=== PATIENT | female | born 1955 | race American Indian/Alaskan Native ===

== ENCOUNTER 2017-09-27 13:03 | Inpatient (IN) | payer BC ==
[2017-09-27 13:07] VITALS: BMI 43.2
[2017-09-27] MEDS ORDERED: Aspirin 325 mg EC Tablets PO STA (13:33)
--- NOTE | 2017-09-27 13:40 | C.PDOC ---
History Of Present Illness 62 year old female, whose PMHx includes HTN and Morbid Obesity, presents to the ED for evaluation of left-sided chest tightness which has been intermittent for 1 week. Patient also complains of subjective shortness of breath. She was evaluated by her PMD and referred to the ED for further evaluation. She denies fever, chills and has no other complaints at this time. PMD: Dr. Serrano Time Seen by Provider: 09/27/17 13:12 Chief Complaint (Nursing): Chest Pain History Per: Patient History/Exam Limitations: no limitations Onset/Duration Of Symptoms: Intermittent Episodes (1 week) Current Symptoms Are (Timing): Still Present Quality: Tightness Additional History Per: Patient Past Medical History Reviewed: Historical Data, Nursing Documentation, Vital Signs Vital Signs: Last Vital Signs Temp 98.2 F 09/28/17 08:23 Pulse 60 09/28/17 08:23 Resp 20 09/28/17 08:23 BP 147/77 09/28/17 08:23 Pulse Ox 97 09/28/17 08:23 - Medical History PMH: HTN Surgical History: No Surg Hx Family History: States: Unknown Family Hx - Social History Hx Alcohol Use: No Hx Substance Use: No - Immunization History Hx Tetanus Toxoid Vaccination: No Hx Influenza Vaccination: No Hx Pneumococcal Vaccination: No Review Of Systems Constitutional: Negative for: Fever, Chills Cardiovascular: Positive for: Other (left-sided chest tightness ) Respiratory: Positive for: Shortness of Breath (subjective ) Physical Exam - Physical Exam Appears: Non-toxic, No Acute Distress, Other (morbidly obese ) Skin: Normal Color, Warm, Dry Head: Atraumatic, Normacephalic Eye(s): bilateral: Normal Inspection Oral Mucosa: Moist Neck: Supple Chest: Symmetrical, No Deformity, No Tenderness Cardiovascular: Rhythm Regular, No Murmur Respiratory: Normal Breath Sounds, No Rales, No Rhonchi, No Wheezing Extremity: Normal ROM, Capillary Refill (less than 2 seconds ) Neurological/Psych: Oriented x3, Normal Speech, Normal Cognition ED Course And Treatment - Laboratory Results Result Diagrams: 09/27/17 13:47 09/27/17 13:47 ECG: Interpreted By Me, Viewed By Me ECG Rhythm: Sinus Rhythm Interpretation Of ECG: Normal Sinus Rhythm at rate [address]/T wave changes. Rate From EC O2 Sat by Pulse Oximetry: 97 Medical Decision Making Medical Decision Making: Progress:cp ro acs Bloodwork, CXR, and EKG ordered and reviewed. Aspirin PO administered. dimer elevated ct shows no large pe, however limted study lovenox dosed. dr colon accepts will obatin v/q inpt. Disposition - Disposition Disposition: HOSPITALIZED Disposition Time: 17:33 Condition: STABLE - Clinical Impression Clinical Impression: Chest pain - Scribe Statement The provider has reviewed the documentation as recorded by the Scribe (Theresa Colon) Provider Attestation: All medical record entries made by the Scribe were at my direction and personally dictated by me. I have reviewed the chart and agree that the record accurately reflects my personal performance of the history, physical exam, medical decision making, and the department course for this patient. I have also personally directed, reviewed, and agree with the discharge instructions and disposition. Decision To Admit - Pt Status Changed To: Hospital Disposition Of: Inpatient - Admit Certification Admit to Inpatient:: After my assessment, the patient will require hospitalization for at least two midnights. This is because of the severity of symptoms shown, intensity of services needed, and/or the medical risk in this patient being treated as an outpatient. - InPatient: Physician Admission Certification: I certify that this patient requires 2 or more midnights of care for the following reason:: pt with cp. needs obs, and v/q - . Bed Request Type: Telemetry Admitting Physician: Soy Colon Patient Diagnosis: Chest pain
[2017-09-27 13:56] LABS: BASO # 0.1 K/uL (0.0-0.2); BASO % 0.9 % (0.0-2.0); EOS # 0.1 K/uL (0.0-0.7); EOS % 0.7 % (0.0-4.0); HEMOGLOBIN 13.6 g/dL (11.0-16.0); LYMPH # 3.4 K/uL (1.0-4.3); LYMPH % 36.9 % (20.0-40.0); MEAN CELL VOLUME 87.1 fL (81.0-99.0); MEAN CORPUSCULAR HEMOGLOBIN 28.9 pg (27.0-31.0); MEAN CORPUSCULAR HGB CONC 33.2 g/dL (33.0-37.0); MEAN PLATELET VOLUME 8.2 fL (7.2-11.7); MONO # 0.4 K/uL (0.0-0.8); MONO % 4.3 % (0.0-10.0); NEUT # 5.2 K/uL (1.8-7.0); NEUT % 57.2 % (50.0-75.0); RBC 4.72 Mil/uL (3.80-5.20); RED CELL DISTRIBUTION WIDTH 14.7 % (11.5-14.5); WHITE BLOOD COUNT 9.1 K/uL (4.8-10.8)
[2017-09-27 14:04] LABS: PROTHROMBIN TIME 11.5 SECONDS (9.7-12.2)
[2017-09-27] MEDS ORDERED: Aspirin 325 mg EC Tablets PO ONE (14:10)
[2017-09-27 14:16] LABS: ALBUMIN 4.3 g/dL (3.5-5.0); ALT/SGPT 38 U/L (9-52); AST/SGOT 29 U/L (14-36); BLOOD UREA NITROGEN 13 mg/dL (7-17); CALCIUM 9.4 mg/dl (8.6-10.4); GFR AFRICAN-AMERICAN > 60; GFR NON-AFRICAN AMERICAN > 60
[2017-09-27 14:32] LABS: B-TYPE NATRIURETIC PEPTIDE 78.2 pg/mL (0-900)
[2017-09-27] MEDS ORDERED: Iodixanol 320 MG/ML 100 ML BOTTLE IV ONE (15:21)
--- NOTE | 2017-09-27 15:48 | RAD ---
HISTORY: chest pain COMPARISON: None TECHNIQUE: Chest PA and lateral FINDINGS: LUNGS: No focal consolidation is seen. PLEURA: No pleural effusion is identified. CARDIOVASCULAR: Heart size is within normal limits. OSSEOUS STRUCTURES: Degenerative changes noted of the spine. VISUALIZED UPPER ABDOMEN: Unremarkable. OTHER FINDINGS: None. IMPRESSION: No acute cardiopulmonary process seen.
--- NOTE | 2017-09-27 16:39 | CT ---
PROCEDURE: CT Chest with contrast (Pulmonary Angiogram) HISTORY: sob elevated dimer COMPARISON: None available. TECHNIQUE: Axial computed tomography images were obtained of the chest in the pulmonary arterial phase of enhancement. Coronal and sagittal reformatted images were created and reviewed. Intravenous contrast dose: 100 mL Visipaque 320 Radiation dose: Total exam DLP = 575.79 mGy-cm. This CT exam was performed using one or more of the following dose reduction techniques: Automated exposure control, adjustment of the mA and/or kV according to patient size, and/or use of iterative reconstruction technique. FINDINGS: PULMONARY ARTERIES: Technically limited examination due to contrast timing and body habitus. Unable to evaluate segmental and subsegmental pulmonary artery branches. No large main or lobar pulmonary arterial filling defect appreciated. AORTA: No acute findings. No thoracic aortic aneurysm. LUNGS: Unremarkable. No nodule, mass or pulmonary consolidation. PLEURAL SPACES: Unremarkable. No effusion or pneuomothorax. HEART: Unremarkable. No cardiomegaly. No significant pericardial effusion. LYMPH NODES: No lymphadenopathy. BONES, CHEST WALL: Unremarkable. No fracture or destructive lesion OTHER FINDINGS: Unremarkable. IMPRESSION: Limited examination. No large main or lobar pulmonary arterial filling defect. Unable to evaluate segmental and subsegmental pulmonary artery branches due to technical limitation. No pulmonary infiltrate/ effusion. Otherwise unremarkable examination.
[2017-09-27] MEDS ORDERED: Enoxaparin 150 mg Syringe SC STA (16:42)
[2017-09-27] MEDS ORDERED: Enoxaparin 80 mg Syringe ONE (16:52)
[2017-09-27] MEDS ORDERED: Enoxaparin 40 mg Syringe ONE (16:53)
--- NOTE | 2017-09-27 20:03 | CP.PCM.PN ---
Subjective - Date & Time of Evaluation Date of Evaluation: 09/27/17 Objective - Vital Signs/Intake and Output Vital Signs (last 24 hours): Temp Pulse Resp BP Pulse Ox 98 F 70 16 141/73 97 09/27/17 13:08 09/27/17 17:18 09/27/17 17:18 09/27/17 17:18 09/27/17 17:34 - Medications Medications: Current Medications Hydrocodone Bitart/Acetaminophen (Vicodin 5 Mg-300 Mg) 1 tab PO Q6H PRN PRN Reason: Pain, moderate (4-7) Stop: 10/04/17 19:54 Amlodipine Besylate (Norvasc) 10 mg PO DAILY [facility] Aspirin (Aspirin Chewable) 81 mg PO DAILY [facility] Carvedilol (Coreg) 40 mg PO DAILY [facility] Enoxaparin Sodium (Lovenox) 40 mg SC DAILY [facility] Enoxaparin Sodium (Lovenox) 117 mg SC DAILY [facility] Gabapentin (Neurontin) 300 mg PO TID [facility] Pantoprazole Sodium (Protonix Inj) 40 mg IVP DAILY [facility] Rosuvastatin Calcium (Crestor) 5 mg PO HS [facility] Sitagliptin Phosphate (Januvia) 100 mg PO DAILY [facility] - Labs Labs: 09/27/17 13:47 09/27/17 13:47 PT 11.5 SECONDS (9.7-12.2) 09/27/17 13:47 INR 1.0 09/27/17 13:47 APTT 37 SECONDS (21-34) H 09/27/17 13:47
--- NOTE | 2017-09-27 20:09 | CP.PCM.HP ---
Past Patient History - Past Social History Smoking Status: Light Smoker < 10 Cigarettes Daily - CARDIAC Hx Hypertension: Yes - PSYCHIATRIC Hx Substance Use: No - SURGICAL HISTORY Hx Surgeries: Yes Hx Orthopedic Surgery: Yes (right knee) Meds Allergies/Adverse Reactions: Allergies Allergy/AdvReac Type Severity Reaction Status Date / Time No Known Allergies Allergy Verified 09/27/17 13:05 Results - Vital Signs Recent Vital Signs: Last Vital Signs Temp 98 F 09/27/17 13:08 Pulse 68 09/27/17 20:01 Resp 16 09/27/17 17:18 BP 141/73 09/27/17 17:18 Pulse Ox 97 09/27/17 17:34 - Labs Result Diagrams: 09/27/17 13:47 09/27/17 13:47 Labs: Laboratory Results - last 24 hr 09/27/17 09/27/17 09/27/17 13:47 13:47 13:47 WBC 9.1 RBC 4.72 Hgb 13.6 Hct 41.1 MCV 87.1 MCH 28.9 MCHC 33.2 RDW 14.7 H Plt Count 256 MPV 8.2 Neut % (Auto) 57.2 Lymph % (Auto) 36.9 Surry % (Auto) 4.3 Eos % (Auto) 0.7 Baso % (Auto) 0.9 Neut # (Auto) 5.2 Lymph # (Auto) 3.4 Surry # (Auto) 0.4 Eos # (Auto) 0.1 Baso # (Auto) 0.1 PT 11.5 INR 1.0 APTT 37 H D-Dimer, Quantitative Sodium 142 Potassium 4.0 Chloride 99 Carbon Dioxide 31 H Anion Gap 16 BUN 13 Creatinine 0.6 L Est GFR ( Amer) > 60 Est GFR (Non-Af Amer) > 60 Random Glucose 98 Calcium 9.4 Total Bilirubin 0.9 AST 29 ALT 38 Alkaline Phosphatase 77 Troponin I < 0.0120 NT-Pro-B Natriuret Pep 78.2 Total Protein 8.4 H Albumin 4.3 Globulin 4.1 H Albumin/Globulin Ratio 1.0 09/27/17 14:41 WBC RBC Hgb Hct MCV MCH MCHC RDW Plt Count MPV Neut % (Auto) Lymph % (Auto) Surry % (Auto) Eos % (Auto) Baso % (Auto) Neut # (Auto) Lymph # (Auto) Surry # (Auto) Eos # (Auto) Baso # (Auto) PT INR APTT D-Dimer, Quantitative 569 H Sodium Potassium Chloride Carbon Dioxide Anion Gap BUN Creatinine Est GFR ( Amer) Est GFR (Non-Af Amer) Random Glucose Calcium Total Bilirubin AST ALT Alkaline Phosphatase Troponin I NT-Pro-B Natriuret Pep Total Protein Albumin Globulin Albumin/Globulin Ratio Assessment & Plan - Assessment and Plan (Free Text) Plan: aspirin Crestor Lovenox ARTHUR 3 Cardiology consult
[2017-09-27] MEDS ORDERED: Pneumococcal 23-Valent Vaccine IM ONE (20:15)
[2017-09-27] MEDS: Hydrocodone/Acetaminophen 5 mg /300 mg Tab PO PRN (21:46)
[2017-09-28 01:39] LABS: CK-MB 0.37 ng/mL (0.0-3.38)
--- NOTE | 2017-09-28 09:34 | CP.PCM.PN ---
Subjective - Date & Time of Evaluation Date of Evaluation: 09/28/17 Time of Evaluation: 09:29 - Subjective Subjective: PGY-[address] Mendieta's service: Pt seen and examined at bedside. Nursing reports no acute events overnight. Patient c/o left sided chest "discomfort/tightness" intermittently for the past week with acute onset SOB starting two days ago. She saw her PMD Dr. Serrano who sent her to ED for evaluation. She states her chest discomfort feels "like a gas pain" but has been persistent. She denies radiation of chest to her back. She is found sitting comfortably at end of bed. She is speaking in full sentences and not using accessory muscles. She denies sick contacts, fever/ chills/headache/abd pain/ N/V. Objective - Vital Signs/Intake and Output Vital Signs (last 24 hours): Temp Pulse Resp BP Pulse Ox 98.2 F 60 20 147/77 97 09/28/17 08:23 09/28/17 08:23 09/28/17 08:23 09/28/17 08:23 09/28/17 08:23 - Medications Medications: Current Medications Hydrocodone Bitart/Acetaminophen (Vicodin 5 Mg-300 Mg) 1 tab PO Q6H PRN PRN Reason: Pain, moderate (4-7) Stop: 10/04/17 19:54 Last Admin: 09/27/17 21:46 Dose: 1 tab Amlodipine Besylate (Norvasc) 10 mg PO DAILY [facility] Aspirin (Aspirin Chewable) 81 mg PO DAILY [facility] Carvedilol (Coreg) 12.5 mg PO BID [facility] Enoxaparin Sodium (Lovenox) 117 mg SC Q12 [facility] Gabapentin (Neurontin) 300 mg PO TID [facility] Pantoprazole Sodium (Protonix Inj) 40 mg IVP DAILY [facility] Pneumococcal Polyvalent Vaccine (Pneumovax 23 Vaccine) 0.5 ml IM .ONCE ONE Stop: 09/28/17 21:01 Rosuvastatin Calcium (Crestor) 5 mg PO HS [facility] Last Admin: 09/27/17 21:36 Dose: 5 mg Sitagliptin Phosphate (Januvia) 100 mg PO DAILY [facility] - Labs Labs: 09/27/17 13:47 09/27/17 13:47 PT 11.5 SECONDS (9.7-12.2) 09/27/17 13:47 INR 1.0 09/27/17 13:47 APTT 37 SECONDS (21-34) H 09/27/17 13:47 - Constitutional Appears: Non-toxic, No Acute Distress, Other (Morbid obesity) - Head Exam Head Exam: ATRAUMATIC, NORMAL INSPECTION Additional comments: Speaking in full sentences No accessory muscle use - Eye Exam Eye Exam: EOMI, PERRL - ENT Exam ENT Exam: Mucous Membranes Moist - Neck Exam Additional comments: Due to habitus JVD cannot be accurately assessed - Respiratory Exam Respiratory Exam: Clear to Ausculation Bilateral, NORMAL BREATHING PATTERN. absent: Accessory Muscle Use, Rales, Rhonchi, Wheezes, Respiratory Distress - Cardiovascular Exam Cardiovascular Exam: REGULAR RHYTHM, +S1, +S2 - GI/Abdominal Exam GI & Abdominal Exam: Soft, Normal Bowel Sounds. absent: Tenderness - Back Exam Back Exam: absent: CVA tenderness (L), CVA tenderness (R) - Neurological Exam Neurological Exam: Alert, Awake, Oriented x3 - Psychiatric Exam Psychiatric exam: Normal Affect, Normal Mood - Skin Skin Exam: Normal Color, Warm Assessment and Plan - Assessment and Plan (Free Text) Plan: Chest pain R/o ACS Admit to tele Patient with multiple RFs for CAD: HTN, DM, HLD, Obesity ARTHUR panel negative x 2 BNP: 78.2 EKG (09/27/17): NSR, 64 bpm; No S1Q3T3; No ST/T wave changes CXR (09/27/17): NAD MANUEL score 2pts (positive criteria: ASA use in past week, 3+ RFs for CAD) - 8% mortality risk w/in 14 days Elevated d-dimer 569 (see plan below) Dr. Dumont, Occupancy Specialist, help appreciated - f/u reccs ASA 81mg PO daily - ASA 325mg PO given in ED once Coreg 12.5 mg PO BID Crestor 5mg PO HS Lovenox 117 mg SC Q12H f/u TSH, Free T4, Lipid panel, A1C Elevated D-dimer D-dimer 569 Venous dopplers Us BLE (09/28/17): negative for DVT CT Chest (09/27/17): Limited examination. No large main/lobar pulm arterial filling defects. Unable to evaluate segmental/subsegmental pulm artery branches due to limitation. No infiltrates/effusions. f/u Vq Scan HTN Above goal at admission; will monitor Norvasc 10mg PO Daily Diabetes Mellitus f/u A1C Not on DALE/ARB - will ask pt if intolerant, o/w will start Januvia 100mg PO Daily Crestor 5mg PO HS DM neuropathy Gabapentin 300mg PO Daily Prophylaxis Lovenox 171 mg SC Q12H Protonix 40mg IV SCD C/I Disposition: VQ scan per Dr. Mendieta. Will continue with therapeutic Lovenox until VQ negative per attending instructions. Will await Dr. Dumont's workup. All medical management per Dr. Mendieta
[2017-09-28] MEDS: Enoxaparin 120 mg Syringe SC SCH ×2 (09:50→21:38)
[2017-09-28] MEDS ORDERED: Enoxaparin 120 mg Syringe SC SCH (10:00)
[2017-09-28] MEDS ORDERED: Enoxaparin 40 mg Syringe SC SCH (10:00)
--- NOTE | 2017-09-28 10:22 | CARD ---
APPROVED REPORT EKG Measurement Heart [id number] <Conclusion> Normal sinus rhythm Normal ECG
[2017-09-28] MEDS ORDERED: Glucagon Recombinant 1 mg Inj IM PRN (12:05)
[2017-09-28] MEDS ORDERED: Dextrose 50% SYRINGE Inj (50 ml) IV PRN (12:05)
--- NOTE | 2017-09-28 15:28 | VASCLAB ---
PROCEDURE: Lower Extremity Venous Duplex Exam. HISTORY: DVT PRIORS: None. TECHNIQUE: Bilateral common femoral, femoral, popliteal and posterior tibial, peroneal and great saphenous veins were evaluated. Flow was assessed with color Doppler, compressibility, assessment of phasic flow and augmentation response. Report prepared by CORRY Urena, RVT FINDINGS: RIGHT: 1. Common Femoral Vein: 1.1. Compressibility - Fully compressible: Thrombus - None : Flow - Phasic: Augmentation -Normal: Reflux - None. 2. Femoral Vein: 2.1. Compressibility - Fully compressible: Thrombus - None : Flow - Phasic: Augmentation -Normal: Reflux - None. 3. Popliteal Vein: 3.1. Compressibility - Fully compressible: Thrombus - None : Flow - Phasic: Augmentation -Normal: Reflux - Severe. 4. Posterior Tibial Vein: 4.1. Compressibility - Fully compressible: Thrombus - None: Flow - Phasic: Augmentation -Normal: Reflux - None. 5. Peroneal Vein: 5.1. Compressibility - Fully compressible: Thrombus - None: Flow - Phasic: Augmentation -Normal: Reflux - None. 6. Great Saphenous Vein: 6.1. Compressibility - Fully compressible: Thrombus - None: Flow - Phasic: Augmentation - Normal: Reflux - None. LEFT: 1. Common Femoral Vein: 1.1. Compressibility - Fully compressible: Thrombus - None: Flow - Phasic: Augmentation -Normal: Reflux - None. 2. Femoral Vein: 2.1. Compressibility - Fully compressible: Thrombus - None: Flow - Phasic: Augmentation -Normal: Reflux - None. 3. Popliteal Vein: 3.1. Compressibility - Fully compressible: Thrombus - None : Flow - Phasic: Augmentation -Normal: Reflux - None. 4. Posterior Tibial Vein: 4.1. Compressibility - Fully compressible: Thrombus - None: Flow - Phasic: Augmentation -Normal: Reflux - None. 5. Peroneal Vein: 5.1. Compressibility - Fully compressible: Thrombus - None: Flow - Phasic: Augmentation -Normal: Reflux - None. 6. Great Saphenous Vein: 6.1. Compressibility - Fully compressible: Thrombus - None: Flow - Phasic: Augmentation - Normal: Reflux - None. OTHER FINDINGS: Right: None significant. Left: None significant. IMPRESSION: Right: No evidence of deep or superficial vein thrombosis of the right lower extremity. Valvular incompetence of the right popliteal vein. Left: No evidence of deep or superficial vein thrombosis of the left lower extremity. Normal valve function noted of the left side.
--- NOTE | 2017-09-28 16:03 | NM ---
COMPARISON: 09/27/2017 CT angiogram for pulmonary embolism September 27, 2017. Single-view chest. September 28, 2017. Lower extremity duplex venous sonography TECHNIQUE: 11.3 mCi technetium 99-m Xe-133 Gas. 3.4 mCI technetium 99-m MAA administered intravenously. FINDINGS: VENTILATION COMPONENT: Normal. PERFUSION COMPONENT: Heterogeneous distribution of radionuclide. No geographic, segmental, lobar abnormalities apparent on the present examination. IMPRESSION: Low probability ventilation perfusion scan for pulmonary embolism.
--- NOTE | 2017-09-28 18:19 | CP.PCM.PN ---
Subjective - Date & Time of Evaluation Date of Evaluation: 09/28/17 Time of Evaluation: 10:00 - Subjective Subjective: clinically same Objective - Vital Signs/Intake and Output Vital Signs (last 24 hours): Temp Pulse Resp BP Pulse Ox 98.4 F 61 20 138/75 97 09/28/17 15:10 09/28/17 16:00 09/28/17 15:10 09/28/17 15:10 09/28/17 16:00 - Medications Medications: Current Medications Hydrocodone Bitart/Acetaminophen (Vicodin 5 Mg-300 Mg) 1 tab PO Q6H PRN PRN Reason: Pain, moderate (4-7) Stop: 10/04/17 19:54 Last Admin: 09/27/17 21:46 Dose: 1 tab Amlodipine Besylate (Norvasc) 10 mg PO DAILY [facility] Aspirin (Aspirin Chewable) 81 mg PO DAILY [facility] Carvedilol (Coreg) 12.5 mg PO BID [facility] Dextrose (Dextrose 50% Inj) 0 ml IV STAT PRN; Protocol PRN Reason: Hypoglycemia Protocol Dextrose (Glutose 15) 0 gm PO ONCE PRN; Protocol PRN Reason: Hypoglycemia Protocol Enoxaparin Sodium (Lovenox) 117 mg SC Q12 [facility] Gabapentin (Neurontin) 300 mg PO TID [facility] Glucagon (Glucagen Diagnostic Kit) 0 mg IM STAT PRN; Protocol PRN Reason: Hypoglycemia Protocol Dextrose (Dextrose 5% In Water 1000 Ml) 1,000 mls @ 0 mls/hr IV .Q0M PRN; Protocol; Per Protocol PRN Reason: Hypoglycemia Protocol Pantoprazole Sodium (Protonix Inj) 40 mg IVP DAILY [facility] Pneumococcal Polyvalent Vaccine (Pneumovax 23 Vaccine) 0.5 ml IM .ONCE ONE Stop: 09/28/17 21:01 Rosuvastatin Calcium (Crestor) 5 mg PO HS [facility] Last Admin: 09/27/17 21:36 Dose: 5 mg Sitagliptin Phosphate (Januvia) 100 mg PO DAILY [facility] - Labs Labs: 09/27/17 13:47 09/27/17 13:47 PT 11.5 SECONDS (9.7-12.2) 09/27/17 13:47 INR 1.0 09/27/17 13:47 APTT 37 SECONDS (21-34) H 09/27/17 13:47 - Constitutional Appears: Well - Head Exam Head Exam: ATRAUMATIC, NORMAL INSPECTION, NORMOCEPHALIC - Eye Exam Eye Exam: EOMI, Normal appearance, PERRL Pupil Exam: NORMAL ACCOMODATION, PERRL - ENT Exam ENT Exam: Mucous Membranes Moist, Normal Exam - Neck Exam Neck Exam: Full ROM, Normal Inspection. absent: Lymphadenopathy - Respiratory Exam Respiratory Exam: Decreased Breath Sounds - Cardiovascular Exam Cardiovascular Exam: REGULAR RHYTHM, +S1, +S2 - GI/Abdominal Exam GI & Abdominal Exam: Soft, Diminished Bowel Sounds - Rectal Exam Rectal Exam: Deferred
[2017-09-28 18:53] LABS: BASO # 0.1 K/uL (0.0-0.2); BASO % 0.6 % (0.0-2.0); EOS # 0.1 K/uL (0.0-0.7); HEMOGLOBIN 13.2 g/dL (11.0-16.0); LYMPH # 3.5 K/uL (1.0-4.3); LYMPH % 35.3 % (20.0-40.0); MEAN CELL VOLUME 86.3 fL (81.0-99.0); MEAN CORPUSCULAR HEMOGLOBIN 29.3 pg (27.0-31.0); MEAN PLATELET VOLUME 8.1 fL (7.2-11.7); MONO # 0.4 K/uL (0.0-0.8); MONO % 4.1 % (0.0-10.0); NEUT # 5.8 K/uL (1.8-7.0); NRBC % 0.1 % (0.0-2.0); RBC 4.49 Mil/uL (3.80-5.20); RED CELL DISTRIBUTION WIDTH 14.5 % (11.5-14.5); WHITE BLOOD COUNT 9.8 K/uL (4.8-10.8)
[2017-09-28 19:12] LABS: ALB/GLOB RATIO 1.1 (1.0-2.1); ALBUMIN 4.2 g/dL (3.5-5.0); ALT/SGPT 36 U/L (9-52); AST/SGOT 28 U/L (14-36); BLOOD UREA NITROGEN 12 mg/dL (7-17); CALCIUM 9.2 mg/dl (8.6-10.4); GFR AFRICAN-AMERICAN > 60; GFR NON-AFRICAN AMERICAN > 60
[2017-09-28] MEDS ORDERED: Potassium Chloride 10 mEq ER Tab PO STA (19:28)
[2017-09-28] MEDS ORDERED: Pneumococcal 23-Valent Vaccine IM ONE (21:00)
--- NOTE | 2017-09-29 01:22 | CON ---
DATE: CARDIOLOGY CONSULTATION REASON FOR CONSULTATION: Chest pain. HISTORY OF PRESENT ILLNESS: The patient is 62 years old, morbidly obese, -[place] female, who has a history of hypertension and is a smoker, presenting because of left-sided chest tightness, radiating to the left shoulder. The patient was seen by her primary physician, Dr. Serrano, and was advised to go to the emergency room. The patient denies any prior cardiac history. The patient denies any associated deficits or chest discomfort. The patient is unaware of any stress testing or cardiac catheterization done to her in the past. The patient has a history of total right knee replacement many years ago, and she uses walking cane in the street. SOCIAL HISTORY: The patient is a smoker. She works as a teacher in [employer]. REVIEW OF SYSTEMS: No fever or chills. No vomiting or diarrhea. No dizziness or syncope. MEDICATIONS: Aspirin 81 mg once a day, Coreg 12.5 mg twice a day, Crestor 5 mg once a day, Januvia 100 mg daily, Lovenox mg subcutaneous twice a day, Neurontin 300 mg t.i.d., Norvasc 10 mg once a day, Protonix 40 mg intravenously once a day. PHYSICAL EXAMINATION: GENERAL: The patient is a middle-aged female who is above 260 pounds. VITAL SIGNS: Blood pressure 147/77, heart rate 60, temperature 98.2, respirations 20. HEENT: Normocephalic. NECK: No JVD. LUNGS: Clear. HEART: S1 and S2 regular. Grade 3/6 systolic ejection murmur over left sternal border. ABDOMEN: Soft. EXTREMITIES: 2+ pitting edema. No calf tenderness. LABORATORIES: CBC, WBC 9.1, hemoglobin 15.6, hematocrit 41.4, platelet count 156,000. SMA-7: Sodium 142, potassium 4.0, chloride 99, CO2 of 81, glucose 98, BUN 15, creatinine 0.8. Two sets of troponins are negative. PT 11.5, PTT 37. D-dimer is 569. Chest CT angio, limited examination, no large main or lobar pulmonary arterial filling defect, unable to evaluate segmental and subsegmental pulmonary arteries, pulmonary artery branches due to technical limitation. EKG revealed normal sinus rhythm. Venous Doppler of lower extremity as well as ventilation/perfusion scan were performed but the reports are still pending. ASSESSMENT: 1. Chest pain, myocardial infarction is ruled out. 2. Morbid obesity. 3. Hypertension. 4. Rule out pulmonary embolism. RECOMMENDATIONS: Continue aspirin 81 mg once a day, Coreg 12.5 mg twice a day, Crestor 5 mg once a day. Continue subcutaneous Lovenox at mg twice a day, Norvasc 10 mg twice a day, Protonix 40 mg intravenously once a day. I would follow ventilation/perfusion scan as well as venous Doppler lower extremity reports. I did request an echocardiogram. Further cardiac workup was about to be recommended to the patient, however, the patient stated that she has to go home today, no matter what, and the case was further to be discussed with the primary physician. It is not clear if the patient will wait for her echo to be performed which was already ordered. David Bangura MD
[2017-09-29] MEDS: Enoxaparin 120 mg Syringe SC SCH (09:59)
[2017-09-29] MEDS: Hydrocodone/Acetaminophen 5 mg /300 mg Tab PO PRN (12:27)
--- NOTE | 2017-09-29 13:36 | CP.PCM.PN ---
Subjective - Date & Time of Evaluation Date of Evaluation: 09/29/17 Time of Evaluation: 08:10 - Subjective Subjective: clinically same Objective - Vital Signs/Intake and Output Vital Signs (last 24 hours): Temp Pulse Resp BP Pulse Ox 97.2 F L 65 20 125/71 95 09/29/17 07:00 09/29/17 07:30 09/29/17 07:00 09/29/17 09:58 09/29/17 07:00 - Medications Medications: Current Medications Hydrocodone Bitart/Acetaminophen (Vicodin 5 Mg-300 Mg) 1 tab PO Q6H PRN PRN Reason: Pain, moderate (4-7) Stop: 10/04/17 19:54 Last Admin: 09/29/17 12:27 Dose: 1 tab Amlodipine Besylate (Norvasc) 10 mg PO DAILY [facility] Last Admin: 09/29/17 09:58 Dose: 10 mg Aspirin (Aspirin Chewable) 81 mg PO DAILY [facility] Last Admin: 09/29/17 09:58 Dose: 81 mg Carvedilol (Coreg) 12.5 mg PO BID [facility] Last Admin: 09/29/17 09:58 Dose: 12.5 mg Dextrose (Dextrose 50% Inj) 0 ml IV STAT PRN; Protocol PRN Reason: Hypoglycemia Protocol Dextrose (Glutose 15) 0 gm PO ONCE PRN; Protocol PRN Reason: Hypoglycemia Protocol Enoxaparin Sodium (Lovenox) 40 mg SC DAILY [facility] Gabapentin (Neurontin) 300 mg PO TID [facility] Last Admin: 09/29/17 09:59 Dose: 300 mg Glucagon (Glucagen Diagnostic Kit) 0 mg IM STAT PRN; Protocol PRN Reason: Hypoglycemia Protocol Dextrose (Dextrose 5% In Water 1000 Ml) 1,000 mls @ 0 mls/hr IV .Q0M PRN; Protocol; Per Protocol PRN Reason: Hypoglycemia Protocol Pantoprazole Sodium (Protonix Inj) 40 mg IVP DAILY [facility] Last Admin: 09/29/17 09:59 Dose: 40 mg Rosuvastatin Calcium (Crestor) 5 mg PO HS [facility] Last Admin: 09/28/17 21:38 Dose: 5 mg Sitagliptin Phosphate (Januvia) 100 mg PO DAILY [facility] Last Admin: 09/29/17 09:58 Dose: 100 mg - Labs Labs: 09/28/17 18:45 09/28/17 18:45 PT 11.5 SECONDS (9.7-12.2) 09/27/17 13:47 INR 1.0 09/27/17 13:47 APTT 37 SECONDS (21-34) H 09/27/17 13:47 - Constitutional Appears: Well - Head Exam Head Exam: ATRAUMATIC, NORMAL INSPECTION, NORMOCEPHALIC - Eye Exam Eye Exam: EOMI, Normal appearance, PERRL Pupil Exam: NORMAL ACCOMODATION, PERRL - ENT Exam ENT Exam: Mucous Membranes Moist, Normal Exam - Neck Exam Neck Exam: Full ROM, Normal Inspection. absent: Lymphadenopathy - Respiratory Exam Respiratory Exam: Decreased Breath Sounds - Cardiovascular Exam Cardiovascular Exam: REGULAR RHYTHM, +S1, +S2 - GI/Abdominal Exam GI & Abdominal Exam: Soft, Diminished Bowel Sounds - Rectal Exam Rectal Exam: Deferred
--- NOTE | 2017-09-29 16:20 | CARD ---
APPROVED REPORT EXAM: Two-dimensional and M-mode echocardiogram with Doppler and color Doppler. Other Information Quality : Technically LimitedRhythm : NSR INDICATION Chest Pain 2D DIMENSIONS IVSd1.7 (0.7-1.1cm)LVDd3.0 (3.9-5.9cm) LVOT Diameter1.6 (1.8-2.4cm)PWd1.7 (0.7-1.1cm) M-Mode DIMENSIONS RVDd2.06 (2.1-3.2cm)Left Atrium (MM)3.67 (2.5-4.0cm) IVSd1.48 (0.7-1.1cm)Aortic Root3.01 (2.2-3.7cm) LVDd5.11 (4.0-5.6cm)Aortic Cusp Exc.1.20 (1.5-2.0cm) PWd1.24 (0.7-1.1cm)FS (%) 45 % LVDs2.80 (2.0-3.8cm)LVEF (%)76 (>50%) Aortic Valve AoV Peak Lunahwyo274.1cm/sAoV VTI62.0cmAO Peak GR.32mmHg LVOT Peak Qfenvkvi104.7cm/sLVOT VTI30.10cmAO Mean GR.17mmHg ISAK (VMAX)0.62wm2NYX (VTI)1.03cm2 Mitral Valve MV E Ssqkkoro472.9cm/sMV A Dhjrykfz897.9cm/sE/A ratio1.0 TDI E/Lateral E'0.0E/Medial E'0.0 Tricuspid Valve TR Peak Kqnfexgq078pv/sTR Peak Gr.39ncSeJICN56mfUr <Conclusion> tds. poor window. normal size la,lv & ra rv. normal lv wall motion,systolic & diastolic function with lvef of 60-65%. moderate degree of lvh. aortic valve is probably trileaflet & calcified. mitral appears normal. tv & pv not well seen. peak/mean av gradient of 37/17 mm of hg & calculated isak of 1.0 cmsq. no ai seen. mild tr with calculated pulmonary systolic pressures of 43 mm of hg, mild pulmonary htn. no pericardial effusion. normal size aortic root.
--- NOTE | 2017-09-29 18:09 | PN ---
DATE: SUBJECTIVE: The patient is comfortable. Chest pain free this morning. No reported ventricular arrhythmia. PHYSICAL EXAMINATION VITAL SIGNS: Blood pressure 125/71, heart rate 61, temperature 97.2, respirations 20. HEENT: Normocephalic. CHEST: Clear. HEART: S1 and S2 regular. ABDOMEN: Soft. EXTREMITIES: 1+ pitting edema. LABORATORY DATA: Two sets of troponins are negative. Today's blood sugar is 115. Official report of Ventilation/perfusion scan has low probability for pulmonary embolus. Venous Doppler of lower extremity, no evidence of deep or superficial deep venous thrombosis. I did review the echocardiographic study, which revealed concentric left ventricular hypertrophy with normal ejection fraction. Right ventricle is slightly dilated with slightly reduced systolic function. ASSESSMENT: 1. Chest pain, myocardial infarction was ruled out. 2. Morbid obesity. 3. Hypertension and diabetes mellitus. 4. Hyperlipidemia. RECOMMENDATIONS: Continue Coreg 12.5 mg once a day, Crestor 5 mg once a day, change Lovenox to 40 mg subcutaneous daily, continue Norvasc 10 mg once a day. The patient agrees for cardiac catheterization, which is scheduled for Sunday around 11 a.m. The patient will be kept NPO after midnight tomorrow. David Bangura MD
[2017-09-30] MEDS ORDERED: DiphenhydrAMINE 50 mg/ml Inj IVP STA (00:09)
[2017-09-30] MEDS ORDERED: Enoxaparin 40 mg Syringe SC SCH (10:00)
[2017-09-30] MEDS: Hydrocodone/Acetaminophen 5 mg /300 mg Tab PO PRN (12:52)
[2017-09-30 12:59] LABS: BARBITURATES, UR NEGATIVE (NEGATIVE); PHENCYCLIDINE, UR NEGATIVE (NEGATIVE)
[2017-09-30 13:59] LABS: BENZODIAZEPINES, UR POSITIVE (NEGATIVE); OPIATES, UR POSITIVE (NEGATIVE)
--- NOTE | 2017-09-30 18:32 | CP.PCM.PN ---
Subjective - Date & Time of Evaluation Date of Evaluation: 09/30/17 Time of Evaluation: 10:20 - Subjective Subjective: clinically same Objective - Vital Signs/Intake and Output Vital Signs (last 24 hours): Temp Pulse Resp BP Pulse Ox 98.1 F 78 21 134/78 95 09/30/17 15:00 09/30/17 15:30 09/30/17 15:00 09/30/17 17:24 09/30/17 15:00 - Medications Medications: Current Medications Hydrocodone Bitart/Acetaminophen (Vicodin 5 Mg-300 Mg) 1 tab PO Q6H PRN PRN Reason: Pain, moderate (4-7) Stop: 10/04/17 19:54 Last Admin: 09/30/17 12:52 Dose: 1 tab Amlodipine Besylate (Norvasc) 10 mg PO DAILY [facility] Last Admin: 09/30/17 09:04 Dose: 10 mg Aspirin (Aspirin Chewable) 81 mg PO DAILY [facility] Last Admin: 09/30/17 09:01 Dose: 81 mg Carvedilol (Coreg) 12.5 mg PO BID [facility] Last Admin: 09/30/17 17:24 Dose: 12.5 mg Dextrose (Dextrose 50% Inj) 0 ml IV STAT PRN; Protocol PRN Reason: Hypoglycemia Protocol Dextrose (Glutose 15) 0 gm PO ONCE PRN; Protocol PRN Reason: Hypoglycemia Protocol Gabapentin (Neurontin) 300 mg PO TID [facility] Last Admin: 09/30/17 17:24 Dose: 300 mg Glucagon (Glucagen Diagnostic Kit) 0 mg IM STAT PRN; Protocol PRN Reason: Hypoglycemia Protocol Dextrose (Dextrose 5% In Water 1000 Ml) 1,000 mls @ 0 mls/hr IV .Q0M PRN; Protocol; Per Protocol PRN Reason: Hypoglycemia Protocol Pantoprazole Sodium (Protonix Inj) 40 mg IVP DAILY [facility] Last Admin: 09/30/17 09:04 Dose: 40 mg Pneumococcal Polyvalent Vaccine (Pneumovax 23 Vaccine) 0.5 ml IM .ONCE ONE Stop: 10/01/17 14:01 Rosuvastatin Calcium (Crestor) 5 mg PO HS [facility] Last Admin: 09/29/17 21:30 Dose: 5 mg Sitagliptin Phosphate (Januvia) 100 mg PO DAILY [facility] Last Admin: 09/30/17 09:04 Dose: 100 mg - Labs Labs: 09/28/17 18:45 03/23/18 18:45 PT 11.5 SECONDS (9.7-12.2) 09/27/17 13:47 INR 1.0 09/27/17 13:47 APTT 37 SECONDS (21-34) H 09/27/17 13:47 - Constitutional Appears: Well - Head Exam Head Exam: ATRAUMATIC, NORMAL INSPECTION, NORMOCEPHALIC - Eye Exam Eye Exam: EOMI, Normal appearance, PERRL Pupil Exam: NORMAL ACCOMODATION, PERRL - ENT Exam ENT Exam: Mucous Membranes Moist, Normal Exam - Neck Exam Neck Exam: Full ROM, Normal Inspection. absent: Lymphadenopathy - Respiratory Exam Respiratory Exam: Decreased Breath Sounds - Cardiovascular Exam Cardiovascular Exam: REGULAR RHYTHM, +S1, +S2 - GI/Abdominal Exam GI & Abdominal Exam: Soft, Diminished Bowel Sounds - Rectal Exam Rectal Exam: Deferred
--- NOTE | 2017-09-30 20:32 | PN ---
DATE: 09/30/2017 SUBJECTIVE: The patient is still experiencing right leg pain. She denies any chest pain. PHYSICAL EXAMINATION: VITAL SIGNS: Blood pressure 156/69, heart rate 68, temperature 98.1, and respirations 21. HEENT: Normocephalic. CHEST: Clear. HEART: S1 and S2, regular. EXTREMITIES: 1+ pitting edema. LABORATORY DATA: Today's blood sugar is 103 and 130 respectively. Official echocardiographic study report is poor echo window, normal LV size, and normal right atrial and right ventricular size. Normal left ventricular wall motion, systolic and diastolic function. Ejection fraction of 60% to 65%. Moderate LVH. Calculated pulmonary systolic pressure, 43 mmHg. ASSESSMENT: 1. Chest pain, myocardial infarction is ruled out. 2. Mild pulmonary hypertension. 3. Status post total left knee replacement. 4. Hypertension and diabetes mellitus. RECOMMENDATIONS: Continue aspirin 81 mg once a day, Coreg at 12.5 mg once a day, Crestor at 5 mg once a day, Lovenox at 40 mg subcutaneously once a day, Norvasc 10 mg once a day. The patient will be kept n.p.o. after midnight. Cardiac catheterization at 11 a.m. Procedure and its risks were explained to the patient, who understood and agreed for the procedure. David Bangura MD
[2017-10-01] MEDS ORDERED: DiphenhydrAMINE 50 mg/ml Inj IVP STA (00:23)
[2017-10-01 08:22] VITALS: RESP 20
--- NOTE | 2017-10-01 09:11 | CP.PCM.PN ---
Subjective - Date & Time of Evaluation Date of Evaluation: 10/01/17 Time of Evaluation: 09:11 - Subjective Subjective: PGY-[address] Mendieta's service: Pt seen and examined at bedside. Nursing reports no acute events overnight. Objective - Vital Signs/Intake and Output Vital Signs (last 24 hours): Temp Pulse Resp BP Pulse Ox 98.2 F 68 20 119/76 97 10/01/17 08:05 10/01/17 08:05 10/01/17 08:05 10/01/17 08:05 10/01/17 08:05 Intake and Output: 10/01/17 10/01/17 06:59 18:59 Intake Total 450 Balance 450 - Medications Medications: Current Medications Hydrocodone Bitart/Acetaminophen (Vicodin 5 Mg-300 Mg) 1 tab PO Q6H PRN PRN Reason: Pain, moderate (4-7) Stop: 10/04/17 19:54 Last Admin: 09/30/17 12:52 Dose: 1 tab Amlodipine Besylate (Norvasc) 10 mg PO DAILY [facility] Last Admin: 09/30/17 09:04 Dose: 10 mg Aspirin (Aspirin Chewable) 81 mg PO DAILY [facility] Last Admin: 09/30/17 09:01 Dose: 81 mg Carvedilol (Coreg) 12.5 mg PO BID [facility] Last Admin: 09/30/17 17:24 Dose: 12.5 mg Dextrose (Dextrose 50% Inj) 0 ml IV STAT PRN; Protocol PRN Reason: Hypoglycemia Protocol Dextrose (Glutose 15) 0 gm PO ONCE PRN; Protocol PRN Reason: Hypoglycemia Protocol Gabapentin (Neurontin) 300 mg PO TID [facility] Last Admin: 09/30/17 17:24 Dose: 300 mg Glucagon (Glucagen Diagnostic Kit) 0 mg IM STAT PRN; Protocol PRN Reason: Hypoglycemia Protocol Dextrose (Dextrose 5% In Water 1000 Ml) 1,000 mls @ 0 mls/hr IV .Q0M PRN; Protocol; Per Protocol PRN Reason: Hypoglycemia Protocol Pantoprazole Sodium (Protonix Inj) 40 mg IVP DAILY [facility] Last Admin: 09/30/17 09:04 Dose: 40 mg Pneumococcal Polyvalent Vaccine (Pneumovax 23 Vaccine) 0.5 ml IM .ONCE ONE Stop: 10/01/17 14:01 Rosuvastatin Calcium (Crestor) 5 mg PO HS [facility] Last Admin: 09/30/17 21:27 Dose: 5 mg Sitagliptin Phosphate (Januvia) 100 mg PO DAILY [facility] Last Admin: 09/30/17 09:04 Dose: 100 mg - Labs Labs: 09/28/17 18:45 09/28/17 18:45 PT 11.5 SECONDS (9.7-12.2) 09/27/17 13:47 INR 1.0 09/27/17 13:47 APTT 37 SECONDS (21-34) H 09/27/17 13:47 - Additional Findings Additional findings: - Constitutional Appears: Non-toxic, No Acute Distress, Other (Morbid obesity) - Head Exam Head Exam: ATRAUMATIC, NORMAL INSPECTION Additional comments: - Eye Exam Eye Exam: EOMI, PERRL - ENT Exam ENT Exam: Mucous Membranes Moist - Neck Exam Additional comments: - Respiratory Exam Respiratory Exam: Clear to Ausculation Bilateral, NORMAL BREATHING PATTERN. absent: Accessory Muscle Use, Rales, Rhonchi, Wheezes, Respiratory Distress - Cardiovascular Exam Cardiovascular Exam: REGULAR RHYTHM, +S1, +S2 - GI/Abdominal Exam GI & Abdominal Exam: Soft, Normal Bowel Sounds. absent: Tenderness - Back Exam Back Exam: absent: CVA tenderness (L), CVA tenderness (R) - Neurological Exam Neurological Exam: Alert, Awake, Oriented x3 - Psychiatric Exam Psychiatric exam: Normal Affect, Normal Mood - Skin Skin Exam: Normal Color, Warm Assessment and Plan - Assessment and Plan (Free Text) Plan: Chest pain R/o ACS Admit to tele Patient with multiple RFs for CAD: HTN, DM, HLD, Obesity ARTHUR panel negative x 2 BNP: 78.2 EKG (09/27/17): NSR, 64 bpm; No S1Q3T3; No ST/T wave changes CXR (09/27/17): NAD ECHO (): MANUEL score 2pts (positive criteria: ASA use in past week, 3+ RFs for CAD) - 8% mortality risk w/in 14 days Elevated d-dimer 569 (see plan below) Dr. Dumont, Information Technology Account Manager, help appreciated - Cardiac Cath for 11AM today ASA 81mg PO daily - ASA 325mg PO given in ED once Coreg 12.5 mg PO BID Start Lisinopril 2.5mg PO Daily Crestor 5mg PO HS Lovenox 117 mg SC Q12H TSH, Free T4: WNL Lipid panel TG 260, Chol 194, LDL 117, HDL 35 A1C: 6.6 Elevated D-dimer D-dimer 569 Venous dopplers Us BLE (09/28/17): negative for DVT CT Chest (09/27/17): Limited examination. No large main/lobar pulm arterial filling defects. Unable to evaluate segmental/subsegmental pulm artery branches due to limitation. No infiltrates/effusions. Vq Scan (09/28/17): Low probability for PE HTN Now well-controlled Norvasc 10mg PO Daily Coreg 12.5 mg PO BID Start Lisinopril 2.5mg PO Daily Diabetes Mellitus A1C: 6.6, well-controlled Start Lisinopril 2.5mg PO Daily Januvia 100mg PO Daily Crestor 5mg PO HS f/u UA, microalbumin Low HDL/Hypertriglyceridemia Diet and exercise counseling given HDL 35, TG 260 Start omega-3 capsules BID DM neuropathy Gabapentin 300mg PO Daily Chronic Knee pain Vicodin/Acetaminophen 5/300mg 1 tab PO Q6H PRN Prophylaxis Lovenox held for cardiac cath this AM, will resume tonight if pt stay in hospital Protonix 40mg PO SCDs Disposition: Pt for cardiac cath today. Await results of cath, Dr. Dumont's recommendations. All medical management per Dr. Mendieta
[2017-10-01 09:36] LABS: BASO % 0.6 % (0.0-2.0); EOS # 0.1 K/uL (0.0-0.7); EOS % 1.4 % (0.0-4.0); HEMOGLOBIN 13.4 g/dL (11.0-16.0); LYMPH # 2.4 K/uL (1.0-4.3); LYMPH % 30.4 % (20.0-40.0); MEAN CELL VOLUME 86.9 fL (81.0-99.0); MEAN CORPUSCULAR HGB CONC 33.4 g/dL (33.0-37.0); MEAN PLATELET VOLUME 8.2 fL (7.2-11.7); MONO # 0.3 K/uL (0.0-0.8); MONO % 4.2 % (0.0-10.0); NEUT # 4.9 K/uL (1.8-7.0); NEUT % 63.4 % (50.0-75.0); RBC 4.63 Mil/uL (3.80-5.20); RED CELL DISTRIBUTION WIDTH 14.7 % (11.5-14.5); WHITE BLOOD COUNT 7.8 K/uL (4.8-10.8)
[2017-10-01 09:41] LABS: BLOOD UREA NITROGEN 10 mg/dL (7-17); CALCIUM 9.3 mg/dl (8.6-10.4); GFR AFRICAN-AMERICAN > 60; GFR NON-AFRICAN AMERICAN > 60
[2017-10-01] MEDS ORDERED: Midazolam 2 MG/2 ML VIAL ONE (10:49)
[2017-10-01] MEDS ORDERED: Morphine 4 MG/ML VIAL IV ONE (13:57)
[2017-10-01] MEDS ORDERED: Pneumococcal 23-Valent Vaccine IM ONE (14:00)
--- NOTE | 2017-10-01 14:26 | CP.PCM.PN ---
Subjective - Date & Time of Evaluation Date of Evaluation: 10/01/17 Time of Evaluation: 11:00 - Subjective Subjective: clinically same Objective - Vital Signs/Intake and Output Vital Signs (last 24 hours): Temp Pulse Resp BP Pulse Ox 97.5 F L 69 20 121/79 95 10/01/17 14:13 10/01/17 14:13 10/01/17 14:13 10/01/17 14:13 10/01/17 14:13 Intake and Output: 10/01/17 10/01/17 06:59 18:59 Intake Total 450 Balance 450 - Medications Medications: Current Medications Hydrocodone Bitart/Acetaminophen (Vicodin 5 Mg-300 Mg) 1 tab PO Q6H PRN PRN Reason: Pain, moderate (4-7) Stop: 10/04/17 19:54 Last Admin: 09/30/17 12:52 Dose: 1 tab Amlodipine Besylate (Norvasc) 10 mg PO DAILY [facility] Last Admin: 10/01/17 09:35 Dose: Not Given Aspirin (Aspirin Chewable) 81 mg PO DAILY [facility] Last Admin: 10/01/17 09:34 Dose: Not Given Carvedilol (Coreg) 12.5 mg PO BID [facility] Last Admin: 10/01/17 09:34 Dose: Not Given Dextrose (Dextrose 50% Inj) 0 ml IV STAT PRN; Protocol PRN Reason: Hypoglycemia Protocol Dextrose (Glutose 15) 0 gm PO ONCE PRN; Protocol PRN Reason: Hypoglycemia Protocol Gabapentin (Neurontin) 300 mg PO TID [facility] Last Admin: 10/01/17 14:14 Dose: Not Given Glucagon (Glucagen Diagnostic Kit) 0 mg IM STAT PRN; Protocol PRN Reason: Hypoglycemia Protocol Dextrose (Dextrose 5% In Water 1000 Ml) 1,000 mls @ 0 mls/hr IV .Q0M PRN; Protocol; Per Protocol PRN Reason: Hypoglycemia Protocol [id number] Ethyl Esters (Lovaza) 1 gm PO BID [facility] Pantoprazole Sodium (Protonix Ec Tab) 40 mg PO Q24H [facility] Rosuvastatin Calcium (Crestor) 5 mg PO HS [facility] Last Admin: 09/30/17 21:27 Dose: 5 mg Sitagliptin Phosphate (Januvia) 100 mg PO DAILY [facility] Last Admin: 10/01/17 09:34 Dose: Not Given - Labs Labs: 10/01/17 09:23 10/01/17 09:23 PT 11.5 SECONDS (9.7-12.2) 09/27/17 13:47 INR 1.0 09/27/17 13:47 APTT 37 SECONDS (21-34) H 09/27/17 13:47 - Constitutional Appears: Well - Head Exam Head Exam: ATRAUMATIC, NORMAL INSPECTION, NORMOCEPHALIC - Eye Exam Eye Exam: EOMI, Normal appearance, PERRL Pupil Exam: NORMAL ACCOMODATION, PERRL - ENT Exam ENT Exam: Mucous Membranes Moist, Normal Exam - Neck Exam Neck Exam: Full ROM, Normal Inspection. absent: Lymphadenopathy - Respiratory Exam Respiratory Exam: Decreased Breath Sounds - Cardiovascular Exam Cardiovascular Exam: REGULAR RHYTHM, +S1, +S2 - GI/Abdominal Exam GI & Abdominal Exam: Soft, Diminished Bowel Sounds - Rectal Exam Rectal Exam: Deferred
[2017-10-01 15:46] VITALS: BP 143/79; PULSE 71; TEMP 97.9; O2SAT 97
[2017-10-01] MEDS ORDERED: Pantoprazole 40 mg EC Tab PO SCH (18:00)
[2017-10-01] MEDS ORDERED: Omega-3-Acid Ethyl Esters 1 GM Cap PO SCH (18:00)
--- NOTE | 2017-10-01 19:00 | PN ---
DATE: SUBJECTIVE: The patient denies any chest pain. She is in the analytical lab analyst after she complaining of right groin pain; however, no reported hematoma or bleeding. PHYSICAL EXAMINATION VITAL SIGNS: Stable. HEENT: Normocephalic. CHEST: Clear. HEART: Heart sounds regular. EXTREMITIES: 1+ pitting edema. ASSESSMENT: 1. Chest pain, myocardial infarction was ruled out, and unremarkable consultation. 2. Mild pulmonary hypertension, and right-sided failure. 3. Morbid obesity. 4. Hypertension. 5. Diabetes mellitus. RECOMMENDATIONS: The patient can be discharged on Norvasc at 10 mg once a day, Crestor at 5 mg once a day, aspirin 81 mg once a day, Coreg at 12.5 mg twice a day. To be followed by her primary physician, Dr. Serrano. David Bangura MD
--- NOTE | 2017-10-01 21:54 | CARDCATH ---
PROCEDURE DATE: The patient is 62-year-old, morbidly obese, female, who has a history of hypertension, diabetes mellitus and is a smoker, presenting because of chest pain, myocardial infarction is ruled out, cardiac catheterization was recommended in view of multiple coronary artery disease risk factors. The procedure and its risks were explained to the patient, who understood and agreed for the procedure. PROCEDURE: After local infiltration with 1% lidocaine, a 6-Thai sheath was placed to the right femoral artery. Left and right coronary angiography was performed with 6-Thai JL4 and JR4 diagnostic catheter. Left ventriculogram was performed with 6-Thai pigtail catheter. The patient tolerated the procedure well without any complications. ANGIOGRAPHIC FINDINGS: Selective injection of left coronary artery revealed the left main to be a large caliber vessel that is bifurcating to a large caliber LAD and large caliber dominant circumflex artery. The entire left coronary circulation was angiographically unremarkable. Selective injection of the right coronary artery revealed a medium-sized codominant vessel that was angiographically unremarkable. Left ventriculogram performed in the MONTES projection revealed normal wall motion, ejection fraction of 65%. CONCLUSION: Unremarkable coronary artery circulation, normal left ventricular systolic function. RECOMMENDATIONS: Search for noncardiac cause of chest pain is recommended. David Bangura MD cc: Dr. Serrano 10/01/2017<
== END 2017-10-01 17:44 | disposition home or self-care (01) | DRG 287 ==
LOC: C.ER 13:03 → C.9E 16:42 → C.6T 18:33 → OBSVTOIN 09-30 14:59
PROVIDERS: ADMIT Internal Medicine Nephrology; ATTEND Internal Medicine Nephrology
PROC: 4A023N7 Measurement of Cardiac Sampling and Pressure, Left Heart, Percutaneous Approach (ICD-10-PCS; principal; 2017-10-01)
PROC: B2151ZZ Fluoroscopy of Left Heart using Low Osmolar Contrast (ICD-10-PCS; 2017-10-01)
PROC: B2111ZZ Fluoroscopy of Multiple Coronary Arteries using Low Osmolar Contrast (ICD-10-PCS; 2017-10-01)
DX: R07.89 Other chest pain (principal); I10 Essential (primary) hypertension; I27.20 Pulmonary hypertension, unspecified; E11.9 Type 2 diabetes mellitus without complications; E78.5 Hyperlipidemia, unspecified; E66.01 Morbid (severe) obesity due to excess calories; Z68.41 Body mass index [BMI] 40.0-44.9, adult; G89.29 Other chronic pain; F17.200 Nicotine dependence, unspecified, uncomplicated; Z96.651 Presence of right artificial knee joint

== ENCOUNTER 2017-11-19 10:30 | Inpatient (IN) | payer BC ==
[2017-11-19 10:30] VITALS: BMI 43.2
--- NOTE | 2017-11-19 11:05 | C.PDOC ---
History Of Present Illness 62-year-old female, PMHx includes Hypertension and Diabetes, presents to the emergency department with complaints of shortness of breath, cough and subjective fever that started four days ago. Patient denies any vomiting, diarrhea, or any other associated symptoms. patient is s/p recent cardiac cath that was negative. Pt is a smoker. Time Seen by Provider: 11/19/17 10:59 Chief Complaint (Nursing): Shortness Of Breath History Per: Patient History/Exam Limitations: no limitations Past Medical History Reviewed: Historical Data, Nursing Documentation, Vital Signs Vital Signs: Last Vital Signs Temp 98.7 F 11/19/17 15:01 Pulse 59 L 11/19/17 15:01 Resp 20 11/19/17 15:01 BP 130/67 11/19/17 15:01 Pulse Ox 96 11/19/17 15:01 - Medical History PMH: HTN - [facility] Procedures FLUOROSCOPY OF LEFT HEART USING LOW OSMOLAR CONTRAST (09/30/17) FLUOROSCOPY OF MULT COR ART USING L OSM CONTRAST (09/30/17) MEASURE OF CARDIAC SAMPL & PRESSURE, L HEART, PERC APPROACH (09/30/17) Family History: States: No Known Family Hx - Social History Hx Tobacco Use: Yes Hx Alcohol Use: No Hx Substance Use: No - Immunization History Hx Tetanus Toxoid Vaccination: No Hx Influenza Vaccination: No Hx Pneumococcal Vaccination: No Review Of Systems Constitutional: Positive for: Fever Respiratory: Positive for: Cough, Shortness of Breath Gastrointestinal: Negative for: Vomiting, Diarrhea Physical Exam - Physical Exam Appears: Non-toxic, No Acute Distress Skin: Normal Color, Warm, Dry, No Rash Head: Normacephalic Eye(s): bilateral: PERRL Nose: Normal Oral Mucosa: Moist Lips: Normal Appearing Neck: Normal ROM Cardiovascular: Rhythm Regular, No Murmur Respiratory: No Accessory Muscle Use, Other (coarse breath sounds B/L) Extremity: Normal ROM, No Deformity, No Swelling Neurological/Psych: Oriented x3, Normal Speech ED Course And Treatment - Laboratory Results Result Diagrams: 11/19/17 11:16 11/19/17 11:16 O2 Sat by Pulse Oximetry: 95 (RA) Pulse Ox Interpretation: Normal Medical Decision Making Medical Decision Making: suspect copd- pt long time smokre. intial blood gas shows hypercariba. repeat abg with improvement. neb steridos. dr colon accepts. perssistent wheezing. Disposition - Disposition Disposition: HOSPITALIZED Disposition Time: 11:00 Condition: FAIR Forms: [facility] (Yakut) - Clinical Impression Clinical Impression: COPD (chronic obstructive pulmonary disease) - Scribe Statement The provider has reviewed the documentation as recorded by the Scribe (Mariajose Majano) All medical record entries made by the Scribe were at my direction and personally dictated by me. I have reviewed the chart and agree that the record accurately reflects my personal performance of the history, physical exam, medical decision making, and the department course for this patient. I have also personally directed, reviewed, and agree with the discharge instructions and disposition. Decision To Admit - Pt Status Changed To: Hospital Disposition Of: Inpatient - Admit Certification Admit to Inpatient:: After my assessment, the patient will require hospitalization for at least two midnights. This is because of the severity of symptoms shown, intensity of services needed, and/or the medical risk in this patient being treated as an outpatient. - InPatient: Physician Admission Certification: I certify that this patient requires 2 or more midnights of care for the following reason:: pt with persistent wheezing. - . Bed Request Type: Telemetry Admitting Physician: Soy Colon Patient Diagnosis: COPD (chronic obstructive pulmonary disease)
[2017-11-19] MEDS ORDERED: Albuterol-Ipratrop 3 mg / 0.5 (3 ml) UD INH STA ×2 (11:06)
[2017-11-19] MEDS ORDERED: Albuterol-Ipratrop 3 mg / 0.5 (3 ml) UD ONE (11:22)
[2017-11-19] MEDS ORDERED: Azithromycin 500 MG in Sodium Chloride 0.9% 250 ML IVPB STA (11:23)
[2017-11-19] MEDS ORDERED: cefTRIAXone IV 1 gm in Dextros 50 ML IVPB ONE ×2 (11:23→11:45)
[2017-11-19 11:24] LABS: BASO # 0.1 K/uL (0.0-0.2); BASO % 0.8 % (0.0-2.0); EOS # 0.1 K/uL (0.0-0.7); EOS % 0.8 % (0.0-4.0); HEMOGLOBIN 12.7 g/dL (11.0-16.0); LYMPH # 2.2 K/uL (1.0-4.3); MEAN CELL VOLUME 87.1 fL (81.0-99.0); MEAN CORPUSCULAR HEMOGLOBIN 29.7 pg (27.0-31.0); MEAN CORPUSCULAR HGB CONC 34.2 g/dL (33.0-37.0); MEAN PLATELET VOLUME 7.8 fL (7.2-11.7); MONO # 0.4 K/uL (0.0-0.8); MONO % 4.6 % (0.0-10.0); NEUT # 5.4 K/uL (1.8-7.0); NEUT % 66.8 % (50.0-75.0); NRBC % 0.1 % (0.0-2.0); RBC 4.26 Mil/uL (3.80-5.20); RED CELL DISTRIBUTION WIDTH 14.9 % (11.5-14.5); WHITE BLOOD COUNT 8.1 K/uL (4.8-10.8)
[2017-11-19 11:30] LABS: INR 1.2; PROTHROMBIN TIME 12.7 SECONDS (9.7-12.2)
--- NOTE | 2017-11-19 11:40 | RAD ---
PROCEDURE: CHEST RADIOGRAPH, 1 VIEW HISTORY: chest pain COMPARISON: Chest radiograph dated 09/27/2017. FINDINGS: LUNGS: Prominence of pulmonary vasculature may be secondary to AP technique and/or pulmonary vascular congestion. Focal consolidation. PLEURA: No pneumothorax or pleural fluid seen. CARDIOVASCULAR: Cardiomediastinal silhouette stably enlarged. OSSEOUS STRUCTURES: Unchanged. VISUALIZED UPPER ABDOMEN: Normal. OTHER FINDINGS: None. IMPRESSION: Prominence of the pulmonary vasculature may be secondary to AP technique and/or pulmonary vascular congestion. No focal consolidation or pleural effusion.
[2017-11-19 11:46] LABS: VENOUS BLOOD GAS BASE EXCESS 8.8 mmol/L (0.0-2.0); VENOUS BLOOD GAS PCO2 67 mmHg (40-60); VENOUS BLOOD GAS PO2 36 mm/Hg (30-55); VENOUS BLOOD PH 7.35 (7.32-7.43)
[2017-11-19] MEDS ORDERED: MethylPREDNISolone 40 mg Vial IVP STA (11:47)
[2017-11-19 11:48] LABS: ALBUMIN 3.9 g/dL (3.5-5.0); ALT/SGPT 31 U/L (9-52); AST/SGOT 38 U/L (14-36); BLOOD UREA NITROGEN 21 mg/dL (7-17); GFR AFRICAN-AMERICAN > 60; GFR NON-AFRICAN AMERICAN 57
[2017-11-19 11:59] LABS: B-TYPE NATRIURETIC PEPTIDE 164 pg/mL (0-900)
[2017-11-19 12:47] LABS: ARTERIAL BLOOD GAS HCO3 31.7 mmol/L (21-28); ARTERIAL BLOOD GAS O2 SAT 81.9 % (95-98); ARTERIAL BLOOD GAS PCO2 58 mm/Hg (35-45); ARTERIAL BLOOD GAS PO2 43 mm/Hg (80-100); ARTERIAL BLOOD GAS TCO2 37.7 mmol/L (22-28)
[2017-11-19] MEDS ORDERED: Albuterol-Ipratrop 3 mg / 0.5 (3 ml) UD INH ONE (18:22)
--- NOTE | 2017-11-19 19:47 | CP.PCM.HP ---
Present on Admission - Present on Admission Any Indicators Present on Admission: No Past Patient History - Infectious Disease Hx of Infectious Diseases: ESL - Past Medical History & Family History Past Medical History?: Yes - Past Social History Smoking Status: Light Smoker < 10 Cigarettes Daily - CARDIAC Hx Hypertension: Yes - PULMONARY Hx Respiratory Disorders: No - NEUROLOGICAL Hx Neurological Disorder: No - HEENT Hx HEENT Problems: No - RENAL Hx Chronic Kidney Disease: No - ENDOCRINE/METABOLIC Hx Endocrine Disorders: Yes Hx Diabetes Mellitus Type 2: Yes - HEMATOLOGICAL/ONCOLOGICAL Hx Blood Disorders: No - INTEGUMENTARY Hx Dermatological Problems: No - MUSCULOSKELETAL/RHEUMATOLOGICAL Hx Musculoskeletal Disorders: No Hx Falls: No - GASTROINTESTINAL Hx Gastrointestinal Disorders: No - GENITOURINARY/GYNECOLOGICAL Hx Genitourinary Disorders: No - PSYCHIATRIC Hx Substance Use: No - SURGICAL HISTORY Hx Surgeries: Yes Hx Cardiac Catheterization: Yes Hx Orthopedic Surgery: Yes (right knee) - ANESTHESIA Hx Anesthesia: Yes Hx Anesthesia Reactions: No Hx Malignant Hyperthermia: No Meds Allergies/Adverse Reactions: Allergies Allergy/AdvReac Type Severity Reaction Status Date / Time No Known Allergies Allergy Verified 11/19/17 10:54 Physical Exam - Constitutional Appears: Well - Head Exam Head Exam: NORMAL INSPECTION - Eye Exam Eye Exam: Normal appearance - ENT Exam ENT Exam: Mucous Membranes Moist - Respiratory Exam Respiratory Exam: Decreased Breath Sounds - Cardiovascular Exam Cardiovascular Exam: REGULAR RHYTHM - GI/Abdominal Exam GI & Abdominal Exam: Diminished Bowel Sounds - Rectal Exam Rectal Exam: Deferred Results - Vital Signs Recent Vital Signs: Last Vital Signs Temp 99.0 F 11/19/17 16:00 Pulse 68 11/19/17 19:02 Resp 20 11/19/17 16:52 BP 125/73 11/19/17 16:00 Pulse Ox 95 11/19/17 16:00 - Labs Result Diagrams: 11/19/17 11:16 11/19/17 11:16 Labs: Laboratory Results - last 24 hr 11/19/17 11/19/17 11/19/17 11:16 11:16 11:16 WBC 8.1 RBC 4.26 Hgb 12.7 Hct 37.1 MCV 87.1 MCH 29.7 MCHC 34.2 RDW 14.9 H Plt Count 226 MPV 7.8 Neut % (Auto) 66.8 Lymph % (Auto) 27.0 [place] % (Auto) 4.6 Eos % (Auto) 0.8 Baso % (Auto) 0.8 Neut # (Auto) 5.4 Lymph # (Auto) 2.2 [place] # (Auto) 0.4 Eos # (Auto) 0.1 Baso # (Auto) 0.1 PT 12.7 H INR 1.2 APTT 38 H Puncture Site pCO2 pO2 HCO3 ABG pH ABG Total CO2 ABG O2 Saturation ABG Base Excess ABG Hemoglobin ABG Carboxyhemoglobin POC ABG HHb (Measured) ABG Methemoglobin Wilberto Test VBG pH VBG pCO2 VBG HCO3 VBG Total CO2 VBG O2 Sat (Calc) VBG Base Excess VBG Potassium Hgb O2 Saturation Glucose Lactate Liter Flow Crit Value Called To Crit Value Called By Crit Value Read Back Blood Gas Notified Time Sodium 144 Potassium 3.8 Chloride 98 Carbon Dioxide 34 H Anion Gap 16 BUN 21 H Creatinine 1.0 Est GFR ( Amer) > 60 Est GFR (Non-Af Amer) 57 Random Glucose 127 H Calcium 9.0 Total Bilirubin 0.5 AST 38 H D ALT 31 Alkaline Phosphatase 69 Troponin I < 0.0120 NT-Pro-B Natriuret Pep 164 Total Protein 7.7 Albumin 3.9 Globulin 3.8 Albumin/Globulin Ratio 1.0 Venous Blood Potassium Influenza Typ A,B (EIA) 11/19/17 11/19/17 11/19/17 11:19 11:30 12:30 WBC RBC Hgb Hct MCV MCH MCHC RDW Plt Count MPV Neut % (Auto) Lymph % (Auto) [place] % (Auto) Eos % (Auto) Baso % (Auto) Neut # (Auto) Lymph # (Auto) [place] # (Auto) Eos # (Auto) Baso # (Auto) PT INR APTT Puncture Site Lb pCO2 58 H pO2 36 43 L* HCO3 31.7 H ABG pH 7.40 ABG Total CO2 37.7 H ABG O2 Saturation 81.9 L ABG Base Excess 9.2 H ABG Hemoglobin 12.0 ABG Carboxyhemoglobin 2.6 H POC ABG HHb (Measured) 17.5 H ABG Methemoglobin 0.7 Wilberto Test Na VBG pH 7.35 VBG pCO2 67 H* VBG HCO3 30.9 VBG Total CO2 39.1 H VBG O2 Sat (Calc) 71.9 H VBG Base Excess 8.8 H VBG Potassium 4.0 Hgb O2 Saturation 79.2 L Glucose 132 H Lactate 1.2 Liter Flow 3.0 Crit Value Called To Juanito more Crit Value Called By Taz avalos poultry husbandry teacher Taz avalos poultry husbandry teacher Crit Value Read Back Y Y Blood Gas Notified Time 1130 1250 Sodium 142.0 Potassium Chloride 102.0 Carbon Dioxide Anion Gap BUN Creatinine Est GFR ( Amer) Est GFR (Non-Af Amer) Random Glucose Calcium Total Bilirubin AST ALT Alkaline Phosphatase Troponin I NT-Pro-B Natriuret Pep Total Protein Albumin Globulin Albumin/Globulin Ratio Venous Blood Potassium 4.0 Influenza Typ A,B (EIA) Negative for flu a/b
[2017-11-19] MEDS: Albuterol-Ipratrop 3 mg / 0.5 (3 ml) UD INH SCH (20:35)
[2017-11-19] MEDS: Fluticasone-Salmeterol 250-50mcg Diskus INH SCH (21:01)
[2017-11-19] MEDS: MethylPREDNISolone 40 mg Vial IVP SCH (21:11)
[2017-11-20] MEDS: Albuterol-Ipratrop 3 mg / 0.5 (3 ml) UD INH SCH ×4 (02:12→19:58)
[2017-11-20] MEDS ORDERED: guaiFENesin 200 mg/10 ml Syrup UD PO STA (03:32)
[2017-11-20] MEDS: MethylPREDNISolone 40 mg Vial IVP SCH ×3 (06:42→21:30)
--- NOTE | 2017-11-20 09:49 | CP.PCM.CON ---
History of Present Illness - History of Present Illness History of Present Illness: Patient seen/examined. full consult to follow. Patient is s/p cardiac cath in September revealing no significant CAD. LV function is normal. Patient has wheezing on exam. I recommend medical therapy and non cardiac work up for dyspnea. Past Patient History - Infectious Disease Hx of Infectious Diseases: ESL - Past Medical History & Family History Past Medical History?: Yes - Past Social History Smoking Status: Light Smoker < 10 Cigarettes Daily - CARDIAC Hx Hypertension: Yes - PULMONARY Hx Respiratory Disorders: No - NEUROLOGICAL Hx Neurological Disorder: No - HEENT Hx HEENT Problems: No - RENAL Hx Chronic Kidney Disease: No - ENDOCRINE/METABOLIC Hx Endocrine Disorders: Yes Hx Diabetes Mellitus Type 2: Yes - HEMATOLOGICAL/ONCOLOGICAL Hx Blood Disorders: No - INTEGUMENTARY Hx Dermatological Problems: No - MUSCULOSKELETAL/RHEUMATOLOGICAL Hx Musculoskeletal Disorders: No Hx Falls: No - GASTROINTESTINAL Hx Gastrointestinal Disorders: No - GENITOURINARY/GYNECOLOGICAL Hx Genitourinary Disorders: No - PSYCHIATRIC Hx Substance Use: No - SURGICAL HISTORY Hx Surgeries: Yes Hx Cardiac Catheterization: Yes Hx Orthopedic Surgery: Yes (right knee) - ANESTHESIA Hx Anesthesia: Yes Hx Anesthesia Reactions: No Hx Malignant Hyperthermia: No Meds Allergies/Adverse Reactions: Allergies Allergy/AdvReac Type Severity Reaction Status Date / Time No Known Allergies Allergy Verified 11/19/17 10:54 - Medications Medications: Current Medications Albuterol/Ipratropium (Duoneb 3 Mg/0.5 Mg (3 Ml) Ud) 3 ml INH RQ6 [facility] Last Admin: 11/20/17 07:40 Dose: 3 ml Alprazolam (Xanax) 0.25 mg PO TID PRN PRN Reason: Anxiety Stop: 11/26/17 20:52 Last Admin: 11/19/17 21:09 Dose: 0.25 mg Amlodipine Besylate (Norvasc) 10 mg PO DAILY [facility] Aspirin (Aspirin Chewable) 81 mg PO DAILY [facility] Carvedilol (Coreg) 25 mg PO BID [facility] Furosemide (Lasix) 40 mg IVP DAILY [facility] Gabapentin (Neurontin) 300 mg PO BID [facility] Last Admin: 11/19/17 21:09 Dose: 300 mg Heparin Sodium (Porcine) (Heparin) 5,000 units SC Q12 [facility] Ceftriaxone Sodium (Rocephin Iv 1 Gm Duplex) 50 mls @ 100 mls/hr IVPB DAILY [facility] PRN Reason: Protocol Azithromycin 500 mg/ Sodium (Chloride) 250 mls @ 250 mls/hr IVPB DAILY@1030 [facility] PRN Reason: Protocol Losartan Potassium (Cozaar) 100 mg PO DAILY [facility] Metformin HCl (Glucophage) 1,000 mg PO BID [facility] Last Admin: 11/19/17 21:09 Dose: 1,000 mg Methylprednisolone (Solu-Medrol) 40 mg IVP Q8 [facility] Last Admin: 11/20/17 06:42 Dose: 40 mg Montelukast Sodium (Singulair) 10 mg PO HS [facility] Last Admin: 11/19/17 21:09 Dose: 10 mg [id number] Ethyl Esters (Lovaza) 1 gm PO BID [facility] Rosuvastatin Calcium (Crestor) 10 mg PO HS [facility] Last Admin: 11/19/17 21:09 Dose: 10 mg Fluticasone/Salmeterol (Advair Diskus 250/50) 1 puff INH RQ12 [facility] Last Admin: 11/19/17 21:01 Dose: Not Given Sitagliptin Phosphate (Januvia) 100 mg PO DAILY [facility] Results - Vital Signs Recent Vital Signs: Last Vital Signs Temp 98.1 F 11/20/17 07:00 Pulse 65 11/20/17 07:00 Resp 18 11/20/17 07:00 BP 140/80 11/20/17 07:00 Pulse Ox 96 11/20/17 07:00 - Labs Result Diagrams: 11/19/17 11:16 11/19/17 11:16 Labs: Laboratory Results - last 24 hr 11/19/17 11/19/17 11/19/17 11:16 11:16 11:16 WBC 8.1 RBC 4.26 Hgb 12.7 Hct 37.1 MCV 87.1 MCH 29.7 MCHC 34.2 RDW 14.9 H Plt Count 226 MPV 7.8 Neut % (Auto) 66.8 Lymph % (Auto) 27.0 [place] % (Auto) 4.6 Eos % (Auto) 0.8 Baso % (Auto) 0.8 Neut # (Auto) 5.4 Lymph # (Auto) 2.2 [place] # (Auto) 0.4 Eos # (Auto) 0.1 Baso # (Auto) 0.1 PT 12.7 H INR 1.2 APTT 38 H Puncture Site pCO2 pO2 HCO3 ABG pH ABG Total CO2 ABG O2 Saturation ABG Base Excess ABG Hemoglobin ABG Carboxyhemoglobin POC ABG HHb (Measured) ABG Methemoglobin Wilberto Test VBG pH VBG pCO2 VBG HCO3 VBG Total CO2 VBG O2 Sat (Calc) VBG Base Excess VBG Potassium Hgb O2 Saturation Glucose Lactate Liter Flow Crit Value Called To Crit Value Called By Crit Value Read Back Blood Gas Notified Time Sodium 144 Potassium 3.8 Chloride 98 Carbon Dioxide 34 H Anion Gap 16 BUN 21 H Creatinine 1.0 Est GFR ( Amer) > 60 Est GFR (Non-Af Amer) 57 POC Glucose (mg/dL) Random Glucose 127 H Calcium 9.0 Total Bilirubin 0.5 AST 38 H D ALT 31 Alkaline Phosphatase 69 Troponin I < 0.0120 NT-Pro-B Natriuret Pep 164 Total Protein 7.7 Albumin 3.9 Globulin 3.8 Albumin/Globulin Ratio 1.0 Venous Blood Potassium Influenza Typ A,B (EIA) 11/19/17 11/19/17 11/19/17 11:19 11:30 12:30 WBC RBC Hgb Hct MCV MCH MCHC RDW Plt Count MPV Neut % (Auto) Lymph % (Auto) [place] % (Auto) Eos % (Auto) Baso % (Auto) Neut # (Auto) Lymph # (Auto) [place] # (Auto) Eos # (Auto) Baso # (Auto) PT INR APTT Puncture Site Lb pCO2 58 H pO2 36 43 L* HCO3 31.7 H ABG pH 7.40 ABG Total CO2 37.7 H ABG O2 Saturation 81.9 L ABG Base Excess 9.2 H ABG Hemoglobin 12.0 ABG Carboxyhemoglobin 2.6 H POC ABG HHb (Measured) 17.5 H ABG Methemoglobin 0.7 Wilberto Test Na VBG pH 7.35 VBG pCO2 67 H* VBG HCO3 30.9 VBG Total CO2 39.1 H VBG O2 Sat (Calc) 71.9 H VBG Base Excess 8.8 H VBG Potassium 4.0 Hgb O2 Saturation 79.2 L Glucose 132 H Lactate 1.2 Liter Flow 3.0 Crit Value Called To Juanito more Crit Value Called By Taz avalos primer boxer Crit Value Read Back Y Y Blood Gas Notified Time 1130 1250 Sodium 142.0 Potassium Chloride 102.0 Carbon Dioxide Anion Gap BUN Creatinine Est GFR ( Amer) Est GFR (Non-Af Amer) POC Glucose (mg/dL) Random Glucose Calcium Total Bilirubin AST ALT Alkaline Phosphatase Troponin I NT-Pro-B Natriuret Pep Total Protein Albumin Globulin Albumin/Globulin Ratio Venous Blood Potassium 4.0 Influenza Typ A,B (EIA) Negative for flu a/b 11/19/17 11/20/17 18:17 06:05 WBC RBC Hgb Hct MCV MCH MCHC RDW Plt Count MPV Neut % (Auto) Lymph % (Auto) [place] % (Auto) Eos % (Auto) Baso % (Auto) Neut # (Auto) Lymph # (Auto) [place] # (Auto) Eos # (Auto) Baso # (Auto) PT INR APTT Puncture Site pCO2 pO2 HCO3 ABG pH ABG Total CO2 ABG O2 Saturation ABG Base Excess ABG Hemoglobin ABG Carboxyhemoglobin POC ABG HHb (Measured) ABG Methemoglobin Wilberto Test VBG pH VBG pCO2 VBG HCO3 VBG Total CO2 VBG O2 Sat (Calc) VBG Base Excess VBG Potassium Hgb O2 Saturation Glucose Lactate Liter Flow Crit Value Called To Crit Value Called By Crit Value Read Back Blood Gas Notified Time Sodium Potassium Chloride Carbon Dioxide Anion Gap BUN Creatinine Est GFR ( Amer) Est GFR (Non-Af Amer) POC Glucose (mg/dL) 200 H 187 H Random Glucose Calcium Total Bilirubin AST ALT Alkaline Phosphatase Troponin I NT-Pro-B Natriuret Pep Total Protein Albumin Globulin Albumin/Globulin Ratio Venous Blood Potassium Influenza Typ A,B (EIA)
--- NOTE | 2017-11-20 09:49 | CP.PCM.CON ---
History of Present Illness - History of Present Illness History of Present Illness: I was asked to evaluate patient by Dr Wilda Mendieta. Patient is a 62 year old female with PMH HTN, hypercholesterolemia COPD who presents with dsypnea. Symptoms were present for the last week. She states she becomes dyspneic on exertion. The patient has to rest for symptoms to improve. Of note patient had a normal cardiac cath this year. Review of Systems - Constitutional Constitutional: absent: As Per HPI, Anorexia, Chills, Daytime Sleepiness, Excessive Sweating, Fatigue, Fever, Frequent Falls, Headache, Increased Appetite , Lethargy, Malaise, Night Sweats, Snoring, Sleep Apnea, Weight Gain, Weight Loss, Weakness, Other - EENT Eyes: absent: As Per HPI, Blind Spots, Blurred Vision, Change in Vision, Decreased Night Vision, Diplopia, Discharge, Dry Eye, Exophthalmos, Floaters, Irritation, Itchy Eyes, Loss of Peripheral Vision, Pain, Photophobia, Requires Corrective Lenses, Sees Flashes, Spots in Vision, Tunnel Vision, Other Visual Disturbances, Loss of Vision, Other Ears: absent: As Per HPI, Decreased Hearing, Ear Discharge, Ear Pain, Tinnitus, Abnormal Hearing, Disequilibrium, Dizziness, Other Nose/Mouth/Throat: absent: As Per HPI, Epistaxis, Nasal Congestion, Nasal Discharge, Nasal Obstruction, Nasal Trauma, Nose Pain, Post Nasal Drip, Sinus Pain, Sinus Pressure, Bleeding Gums, Change in Voice, Dental Pain, Dry Mouth, Dysphagia, Halitosis, Hoarsness, Lip Swelling, Mouth Lesions, Mouth Pain, Odynophagia, Sore Throat, Throat Swelling, Tongue Swelling, Facial Pain, Neck Pain, Neck Mass, Other - Cardiovascular Cardiovascular: absent: As Per HPI, Acrocyanosis, Chest Pain, Chest Pain at Rest , Chest Pain with Activity, Claudication, Diaphoresis, Dyspnea, Dyspnea on Exertion, Edema, Irregular Heart Rhythm, Pain Radiating to Arm/Neck/Jaw, Leg Edema, Leg Ulcers, Lightheadedness, Orthopnea, Palpitations, Paroxysmal Nocturnal Dyspnea, Pedal Edema, Radiating Pain, Rapid Heart Rate, Slow Heart Rate, Syncope, Other - Respiratory Respiratory: absent: As Per HPI, Cough, Dyspnea, Hemoptysis, Dyspnea on Exertion , Wheezing, Snoring, Stridor, Pain on Inspiration, Chest Congestion, Excessive Mucous Production, Change in Mucous Color, Pain with Coughing, Other - Gastrointestinal Gastrointestinal: absent: As Per HPI, Abdominal Pain, Belching, Bloating, Change in Bowel Habits, Change in Stool Character, Coffee Ground Emesis, Constipation, Cramping, Diarrhea, Dyspepsia, Dysphagia, Early Satiety, Excessive Flatus, Fecal Incontinence, Heartburn, Hematemesis, Hematochezia, Loose Stools, Melena, Nausea, Odynophagia, Temesmus, Vomiting, Other - Genitourinary Genitourinary: absent: As Per HPI, Change in Urinary Stream, Difficulty Urinating, Dysuria, Flank Pain, Hematuria, Pyuria, Nocturia, Urinary Incontinence, Urinary Frequency, Urinary Hesitance, Urinary Urgency, Voiding Freq/Small Amts, Freq UTI, Hx Renal/Bladder Calculi, Hx /Renal Surgery, Bladder Distension, Other - Musculoskeletal Musculoskeletal: absent: As Per HPI, Abnormal Gait, Arthralgias, Atrophy, Back Pain, Deformity, Joint Swelling, Limited Range of Motion, Loss of Height, Muscle Cramps, Muscle Weakness, Myalgias, Neck Pain, Numbness, Radiating Pain into Limb, Stiffness, Tingling, Other - Integumentary Integumentary: absent: As Per HPI, Acne, Alopecia, Bleeding Lesions, Change in Hair, Change in Nails, Change in Pigmentation, Changing Lesions, Dry Skin, Erythema, Furuncle, Hirsutism, Lesions, New Lesions, Non-Healing Lesions, Photosensitivity, Pruritus, Rash, Skin Pain, Skin Ulcer, Sores, Striae, Swelling , Unusual Bruising, Wounds, Jaundice, Other - Neurological Neurological: absent: As Per HPI, Abnormal Gait, Abnormal Hearing, Abnormal Movements, Abnormal Speech, Behavioral Changes, Burning Sensations, Confusion, Convulsions, Disequilibrium, Dizziness, Numbness, Focal Weakness, Frequent Falls , Headaches, Lack of Coordination, Loss of Vision, Memory Loss, Paresthesias, Radicular Pain, Restless Legs, Sensory Deficit, Syncope, Tingling, Tremor, Vertigo, Weakness, Other Visual Disturbances, Other - Psychiatric Psychiatric: absent: As Per HPI, Abnormal Sleep Pattern, Anhedonia, Anxiety, Auditory Hallucinations, Behavioral Changes, Change in Appetite, Change in Libido, Confusion, Depression, Difficulty Concentrating, Hallucinations, Homicidal Ideation, Hopelessness, Irritability, Memory Loss, Mood Swings, Panic Attacks, Paranoia, Suicidal Ideation, Visual Hallucinations, Tactile Hallucinations, Other - Endocrine Endocrine: absent: As Per HPI, Change in Body Appearance, Change in Libido, Cold Intolorance, Deepening of Voice, Excessive Sweating, Fatigue, Flushing, Heat Intolorance, Increase in Ring/Shoe/Hat Size, Palpitations, Polydipsia, Polyphagia, Polyuria, Other - Hematologic/Lymphatic Hematologic: absent: As Per HPI, Easy Bleeding, Easy Bruising, Lymphadenopathy, Other Past Patient History - Infectious Disease Hx of Infectious Diseases: ESL - Past Medical History & Family History Past Medical History?: Yes - Past Social History Smoking Status: Light Smoker < 10 Cigarettes Daily - CARDIAC Hx Hypertension: Yes - PULMONARY Hx Respiratory Disorders: No - NEUROLOGICAL Hx Neurological Disorder: No - HEENT Hx HEENT Problems: No - RENAL Hx Chronic Kidney Disease: No - ENDOCRINE/METABOLIC Hx Endocrine Disorders: Yes Hx Diabetes Mellitus Type 2: Yes - HEMATOLOGICAL/ONCOLOGICAL Hx Blood Disorders: No - INTEGUMENTARY Hx Dermatological Problems: No - MUSCULOSKELETAL/RHEUMATOLOGICAL Hx Musculoskeletal Disorders: No Hx Falls: No - GASTROINTESTINAL Hx Gastrointestinal Disorders: No - GENITOURINARY/GYNECOLOGICAL Hx Genitourinary Disorders: No - PSYCHIATRIC Hx Substance Use: No - SURGICAL HISTORY Hx Surgeries: Yes Hx Cardiac Catheterization: Yes Hx Orthopedic Surgery: Yes (right knee) - ANESTHESIA Hx Anesthesia: Yes Hx Anesthesia Reactions: No Hx Malignant Hyperthermia: No Meds Allergies/Adverse Reactions: Allergies Allergy/AdvReac Type Severity Reaction Status Date / Time No Known Allergies Allergy Verified 11/19/17 10:54 - Medications Medications: Current Medications Albuterol/Ipratropium (Duoneb 3 Mg/0.5 Mg (3 Ml) Ud) 3 ml INH RQ6 [facility] Last Admin: 11/20/17 07:40 Dose: 3 ml Alprazolam (Xanax) 0.25 mg PO TID PRN PRN Reason: Anxiety Stop: 11/26/17 20:52 Last Admin: 11/19/17 21:09 Dose: 0.25 mg Amlodipine Besylate (Norvasc) 10 mg PO DAILY [facility] Aspirin (Aspirin Chewable) 81 mg PO DAILY [facility] Carvedilol (Coreg) 25 mg PO BID [facility] Furosemide (Lasix) 40 mg IVP DAILY [facility] Gabapentin (Neurontin) 300 mg PO BID [facility] Last Admin: 11/19/17 21:09 Dose: 300 mg Heparin Sodium (Porcine) (Heparin) 5,000 units SC Q12 [facility] Ceftriaxone Sodium (Rocephin Iv 1 Gm Duplex) 50 mls @ 100 mls/hr IVPB DAILY [facility] PRN Reason: Protocol Azithromycin 500 mg/ Sodium (Chloride) 250 mls @ 250 mls/hr IVPB DAILY@1030 [facility] PRN Reason: Protocol Losartan Potassium (Cozaar) 100 mg PO DAILY [facility] Metformin HCl (Glucophage) 1,000 mg PO BID [facility] Last Admin: 11/19/17 21:09 Dose: 1,000 mg Methylprednisolone (Solu-Medrol) 40 mg IVP Q8 [facility] Last Admin: 11/20/17 06:42 Dose: 40 mg Montelukast Sodium (Singulair) 10 mg PO HS [facility] Last Admin: 11/19/17 21:09 Dose: 10 mg [id number] Ethyl Esters (Lovaza) 1 gm PO BID [facility] Rosuvastatin Calcium (Crestor) 10 mg PO HS [facility] Last Admin: 11/19/17 21:09 Dose: 10 mg Fluticasone/Salmeterol (Advair Diskus 250/50) 1 puff INH RQ12 [facility] Last Admin: 11/19/17 21:01 Dose: Not Given Sitagliptin Phosphate (Januvia) 100 mg PO DAILY [facility] Physical Exam - Constitutional Appears: Non-toxic - Head Exam Head Exam: NORMAL INSPECTION - Eye Exam Eye Exam: Normal appearance - ENT Exam ENT Exam: Mucous Membranes Moist - Neck Exam Neck exam: Positive for: Full Rom - Respiratory Exam Respiratory Exam: NORMAL BREATHING PATTERN - Cardiovascular Exam Cardiovascular Exam: REGULAR RHYTHM - GI/Abdominal Exam GI & Abdominal Exam: Normal Bowel Sounds - Rectal Exam Rectal Exam: Deferred - Extremities Exam Extremities exam: Positive for: pedal pulses present - Back Exam Back exam: NORMAL INSPECTION - Neurological Exam Neurological exam: Alert, Oriented x3 - Psychiatric Exam Psychiatric exam: Normal Affect, Normal Mood - Skin Skin Exam: Normal Color Results - Vital Signs Recent Vital Signs: Last Vital Signs Temp 98.1 F 11/20/17 07:00 Pulse 65 11/20/17 07:00 Resp 18 11/20/17 07:00 BP 140/80 11/20/17 07:00 Pulse Ox 96 11/20/17 07:00 - Labs Result Diagrams: 11/19/17 11:16 11/19/17 11:16 Labs: Laboratory Results - last 24 hr 11/19/17 11/19/17 11/19/17 11:16 11:16 11:16 WBC 8.1 RBC 4.26 Hgb 12.7 Hct 37.1 MCV 87.1 MCH 29.7 MCHC 34.2 RDW 14.9 H Plt Count 226 MPV 7.8 Neut % (Auto) 66.8 Lymph % (Auto) 27.0 [place] % (Auto) 4.6 Eos % (Auto) 0.8 Baso % (Auto) 0.8 Neut # (Auto) 5.4 Lymph # (Auto) 2.2 [place] # (Auto) 0.4 Eos # (Auto) 0.1 Baso # (Auto) 0.1 PT 12.7 H INR 1.2 APTT 38 H Puncture Site pCO2 pO2 HCO3 ABG pH ABG Total CO2 ABG O2 Saturation ABG Base Excess ABG Hemoglobin ABG Carboxyhemoglobin POC ABG HHb (Measured) ABG Methemoglobin Wilberto Test VBG pH VBG pCO2 VBG HCO3 VBG Total CO2 VBG O2 Sat (Calc) VBG Base Excess VBG Potassium Hgb O2 Saturation Glucose Lactate Liter Flow Crit Value Called To Crit Value Called By Crit Value Read Back Blood Gas Notified Time Sodium 144 Potassium 3.8 Chloride 98 Carbon Dioxide 34 H Anion Gap 16 BUN 21 H Creatinine 1.0 Est GFR ( Amer) > 60 Est GFR (Non-Af Amer) 57 POC Glucose (mg/dL) Random Glucose 127 H Calcium 9.0 Total Bilirubin 0.5 AST 38 H D ALT 31 Alkaline Phosphatase 69 Troponin I < 0.0120 NT-Pro-B Natriuret Pep 164 Total Protein 7.7 Albumin 3.9 Globulin 3.8 Albumin/Globulin Ratio 1.0 Venous Blood Potassium Influenza Typ A,B (EIA) 11/19/17 11/19/17 11/19/17 11:19 11:30 12:30 WBC RBC Hgb Hct MCV MCH MCHC RDW Plt Count MPV Neut % (Auto) Lymph % (Auto) [place] % (Auto) Eos % (Auto) Baso % (Auto) Neut # (Auto) Lymph # (Auto) [place] # (Auto) Eos # (Auto) Baso # (Auto) PT INR APTT Puncture Site Lb pCO2 58 H pO2 36 43 L* HCO3 31.7 H ABG pH 7.40 ABG Total CO2 37.7 H ABG O2 Saturation 81.9 L ABG Base Excess 9.2 H ABG Hemoglobin 12.0 ABG Carboxyhemoglobin 2.6 H POC ABG HHb (Measured) 17.5 H ABG Methemoglobin 0.7 Wilberto Test Na VBG pH 7.35 VBG pCO2 67 H* VBG HCO3 30.9 VBG Total CO2 39.1 H VBG O2 Sat (Calc) 71.9 H VBG Base Excess 8.8 H VBG Potassium 4.0 Hgb O2 Saturation 79.2 L Glucose 132 H Lactate 1.2 Liter Flow 3.0 Crit Value Called To Juanito more Crit Value Called By Taz avalos tool room attendant Taz avalos tool room attendant Crit Value Read Back Y Y Blood Gas Notified Time 1130 1250 Sodium 142.0 Potassium Chloride 102.0 Carbon Dioxide Anion Gap BUN Creatinine Est GFR ( Amer) Est GFR (Non-Af Amer) POC Glucose (mg/dL) Random Glucose Calcium Total Bilirubin AST ALT Alkaline Phosphatase Troponin I NT-Pro-B Natriuret Pep Total Protein Albumin Globulin Albumin/Globulin Ratio Venous Blood Potassium 4.0 Influenza Typ A,B (EIA) Negative for flu a/b 11/19/17 11/20/17 18:17 06:05 WBC RBC Hgb Hct MCV MCH MCHC RDW Plt Count MPV Neut % (Auto) Lymph % (Auto) [place] % (Auto) Eos % (Auto) Baso % (Auto) Neut # (Auto) Lymph # (Auto) [place] # (Auto) Eos # (Auto) Baso # (Auto) PT INR APTT Puncture Site pCO2 pO2 HCO3 ABG pH ABG Total CO2 ABG O2 Saturation ABG Base Excess ABG Hemoglobin ABG Carboxyhemoglobin POC ABG HHb (Measured) ABG Methemoglobin Wilberto Test VBG pH VBG pCO2 VBG HCO3 VBG Total CO2 VBG O2 Sat (Calc) VBG Base Excess VBG Potassium Hgb O2 Saturation Glucose Lactate Liter Flow Crit Value Called To Crit Value Called By Crit Value Read Back Blood Gas Notified Time Sodium Potassium Chloride Carbon Dioxide Anion Gap BUN Creatinine Est GFR ( Amer) Est GFR (Non-Af Amer) POC Glucose (mg/dL) 200 H 187 H Random Glucose Calcium Total Bilirubin AST ALT Alkaline Phosphatase Troponin I NT-Pro-B Natriuret Pep Total Protein Albumin Globulin Albumin/Globulin Ratio Venous Blood Potassium Influenza Typ A,B (EIA) - EKG Data EKG Interpreted by: Myself EKG shows normal: Sinus rhythm Assessment & Plan (1) COPD (chronic obstructive pulmonary disease) Assessment and Plan: patient has non obstructive CAD. Left ventricular function is normal. Symptoms are likely not cardaic in origin. Recommend assessment for non cardiac causes of her symptoms. Status: Acute (2) HTN (hypertension) Assessment and Plan: medical therapy Status: Acute
[2017-11-20] MEDS: Omega-3-Acid Ethyl Esters 1 GM Cap PO SCH ×2 (10:15→17:54)
[2017-11-20] MEDS: cefTRIAXone IV 1 gm in Dextros 50 ML IVPB SCH (10:27)
[2017-11-20] MEDS: Azithromycin 500 MG in Sodium Chloride 0.9% 250 ML IVPB SCH (11:20)
[2017-11-20] MEDS: guaiFENesin 200 mg/10 ml Syrup UD PO SCH ×2 (12:45→17:57)
--- NOTE | 2017-11-20 15:15 | CARD ---
APPROVED REPORT EKG Measurement Heart [id number] <Conclusion> Normal sinus rhythm Normal ECG
--- NOTE | 2017-11-20 16:49 | CP.PCM.CON ---
Past Patient History - Infectious Disease Hx of Infectious Diseases: ESL - Past Medical History & Family History Past Medical History?: Yes - Past Social History Smoking Status: Light Smoker < 10 Cigarettes Daily - CARDIAC Hx Hypertension: Yes - PULMONARY Hx Respiratory Disorders: No - NEUROLOGICAL Hx Neurological Disorder: No - HEENT Hx HEENT Problems: No - RENAL Hx Chronic Kidney Disease: No - ENDOCRINE/METABOLIC Hx Endocrine Disorders: Yes Hx Diabetes Mellitus Type 2: Yes - HEMATOLOGICAL/ONCOLOGICAL Hx Blood Disorders: No - INTEGUMENTARY Hx Dermatological Problems: No - MUSCULOSKELETAL/RHEUMATOLOGICAL Hx Musculoskeletal Disorders: No Hx Falls: No - GASTROINTESTINAL Hx Gastrointestinal Disorders: No - GENITOURINARY/GYNECOLOGICAL Hx Genitourinary Disorders: No - PSYCHIATRIC Hx Substance Use: No - SURGICAL HISTORY Hx Surgeries: Yes Hx Cardiac Catheterization: Yes Hx Orthopedic Surgery: Yes (right knee) - ANESTHESIA Hx Anesthesia: Yes Hx Anesthesia Reactions: No Hx Malignant Hyperthermia: No Meds Allergies/Adverse Reactions: Allergies Allergy/AdvReac Type Severity Reaction Status Date / Time No Known Allergies Allergy Verified 11/19/17 10:54 - Medications Medications: Current Medications Albuterol/Ipratropium (Duoneb 3 Mg/0.5 Mg (3 Ml) Ud) 3 ml INH RQ6 [facility] Last Admin: 11/20/17 13:01 Dose: 3 ml Alprazolam (Xanax) 0.25 mg PO TID PRN PRN Reason: Anxiety Stop: 11/26/17 20:52 Last Admin: 11/19/17 21:09 Dose: 0.25 mg Amlodipine Besylate (Norvasc) 10 mg PO DAILY [facility] Last Admin: 11/20/17 10:15 Dose: 10 mg Aspirin (Aspirin Chewable) 81 mg PO DAILY [facility] Last Admin: 11/20/17 10:14 Dose: 81 mg Carvedilol (Coreg) 25 mg PO BID [facility] Last Admin: 11/20/17 10:21 Dose: 25 mg Furosemide (Lasix) 40 mg IVP DAILY [facility] Last Admin: 11/20/17 10:20 Dose: 40 mg Gabapentin (Neurontin) 300 mg PO BID [facility] Last Admin: 11/20/17 10:15 Dose: 300 mg Guaifenesin (Robitussin) 200 mg PO Q6H [facility] Last Admin: 11/20/17 12:45 Dose: 200 mg Heparin Sodium (Porcine) (Heparin) 5,000 units SC Q12 [facility] Last Admin: 11/20/17 10:15 Dose: 5,000 units Ceftriaxone Sodium (Rocephin Iv 1 Gm Duplex) 50 mls @ 100 mls/hr IVPB DAILY [facility] PRN Reason: Protocol Last Admin: 11/20/17 10:27 Dose: 100 mls/hr Azithromycin 500 mg/ Sodium (Chloride) 250 mls @ 250 mls/hr IVPB DAILY@1030 [facility] PRN Reason: Protocol Last Admin: 11/20/17 11:20 Dose: 250 mls/hr Losartan Potassium (Cozaar) 100 mg PO DAILY [facility] Last Admin: 11/20/17 10:15 Dose: 100 mg Metformin HCl (Glucophage) 1,000 mg PO BID [facility] Last Admin: 11/20/17 10:14 Dose: 1,000 mg Methylprednisolone (Solu-Medrol) 40 mg IVP Q8 [facility] Last Admin: 11/20/17 14:58 Dose: 40 mg Montelukast Sodium (Singulair) 10 mg PO HS [facility] Last Admin: 11/19/17 21:09 Dose: 10 mg Xmhkm-9-Torx Ethyl Esters (Lovaza) 1 gm PO BID [facility] Last Admin: 11/20/17 10:15 Dose: 1 gm Rosuvastatin Calcium (Crestor) 10 mg PO HS [facility] Last Admin: 11/19/17 21:09 Dose: 10 mg Fluticasone/Salmeterol (Advair Diskus 250/50) 1 puff INH RQ12 [facility] Last Admin: 11/19/17 21:01 Dose: Not Given Sitagliptin Phosphate (Januvia) 100 mg PO DAILY [facility] Last Admin: 11/20/17 10:14 Dose: 100 mg Results - Vital Signs Recent Vital Signs: Last Vital Signs Temp 98.1 F 11/20/17 07:00 Pulse 68 11/20/17 16:28 Resp 18 11/20/17 07:00 BP 160/84 H 11/20/17 10:21 Pulse Ox 96 11/20/17 07:00 - Labs Result Diagrams: 11/19/17 11:16 11/19/17 11:16 Labs: Laboratory Results - last 24 hr 11/19/17 11/20/17 11/20/17 18:17 06:05 11:20 POC Glucose (mg/dL) 200 H 187 H 298 H
--- NOTE | 2017-11-20 19:13 | CP.PCM.PN ---
Subjective - Date & Time of Evaluation Date of Evaluation: 11/20/17 Time of Evaluation: 08:00 - Subjective Subjective: clinically same Objective - Vital Signs/Intake and Output Vital Signs (last 24 hours): Temp Pulse Resp BP Pulse Ox 98.5 F 68 22 149/83 94 L 11/20/17 16:00 11/20/17 16:28 11/20/17 16:00 11/20/17 17:55 11/20/17 16:00 Intake and Output: 11/20/17 11/21/17 18:59 06:59 Intake Total 730 Balance 730 - Medications Medications: Current Medications Albuterol/Ipratropium (Duoneb 3 Mg/0.5 Mg (3 Ml) Ud) 3 ml INH RQ6 [facility] Last Admin: 11/20/17 13:01 Dose: 3 ml Alprazolam (Xanax) 0.25 mg PO TID PRN PRN Reason: Anxiety Stop: 11/26/17 20:52 Last Admin: 11/19/17 21:09 Dose: 0.25 mg Amlodipine Besylate (Norvasc) 10 mg PO DAILY [facility] Last Admin: 11/20/17 10:15 Dose: 10 mg Aspirin (Aspirin Chewable) 81 mg PO DAILY [facility] Last Admin: 11/20/17 10:14 Dose: 81 mg Carvedilol (Coreg) 25 mg PO BID [facility] Last Admin: 11/20/17 17:55 Dose: 25 mg Furosemide (Lasix) 40 mg IVP DAILY [facility] Last Admin: 11/20/17 10:20 Dose: 40 mg Gabapentin (Neurontin) 300 mg PO BID [facility] Last Admin: 11/20/17 17:54 Dose: 300 mg Guaifenesin (Robitussin) 200 mg PO Q6H [facility] Last Admin: 11/20/17 17:57 Dose: Not Given Heparin Sodium (Porcine) (Heparin) 5,000 units SC Q12 [facility] Last Admin: 11/20/17 10:15 Dose: 5,000 units Hydrochlorothiazide (Hydrodiuril) 25 mg PO DAILY [facility] Last Admin: 11/20/17 19:07 Dose: 25 mg Ceftriaxone Sodium (Rocephin Iv 1 Gm Duplex) 50 mls @ 100 mls/hr IVPB DAILY [facility] PRN Reason: Protocol Last Admin: 11/20/17 10:27 Dose: 100 mls/hr Azithromycin 500 mg/ Sodium (Chloride) 250 mls @ 250 mls/hr IVPB DAILY@1030 [facility] PRN Reason: Protocol Last Admin: 11/20/17 11:20 Dose: 250 mls/hr Losartan Potassium (Cozaar) 100 mg PO DAILY [facility] Last Admin: 11/20/17 10:15 Dose: 100 mg Metformin HCl (Glucophage) 1,000 mg PO BID [facility] Last Admin: 11/20/17 17:54 Dose: 1,000 mg Methylprednisolone (Solu-Medrol) 40 mg IVP Q8 [facility] Last Admin: 11/20/17 14:58 Dose: 40 mg Montelukast Sodium (Singulair) 10 mg PO HS [facility] Last Admin: 11/19/17 21:09 Dose: 10 mg Nbuzs-3-Uhzo Ethyl Esters (Lovaza) 1 gm PO BID [facility] Last Admin: 11/20/17 17:54 Dose: 1 gm Promethazine HCl/Dextromethorphan (Phenergan Dm Syrup) 10 ml PO BID PRN PRN Reason: Cough Rosuvastatin Calcium (Crestor) 10 mg PO HS [facility] Last Admin: 11/19/17 21:09 Dose: 10 mg Fluticasone/Salmeterol (Advair Diskus 250/50) 1 puff INH RQ12 [facility] Last Admin: 11/19/17 21:01 Dose: Not Given Sitagliptin Phosphate (Januvia) 100 mg PO DAILY [facility] Last Admin: 11/20/17 10:14 Dose: 100 mg - Labs Labs: 11/19/17 11:16 11/19/17 11:16 PT 12.7 SECONDS (9.7-12.2) H 11/19/17 11:16 INR 1.2 11/19/17 11:16 APTT 38 SECONDS (21-34) H 11/19/17 11:16 - Constitutional Appears: Well - Head Exam Head Exam: ATRAUMATIC, NORMAL INSPECTION, NORMOCEPHALIC - Eye Exam Eye Exam: EOMI, Normal appearance, PERRL Pupil Exam: NORMAL ACCOMODATION, PERRL - ENT Exam ENT Exam: Mucous Membranes Moist, Normal Exam - Neck Exam Neck Exam: Full ROM, Normal Inspection. absent: Lymphadenopathy - Respiratory Exam Respiratory Exam: Decreased Breath Sounds - Cardiovascular Exam Cardiovascular Exam: REGULAR RHYTHM, +S1, +S2 - GI/Abdominal Exam GI & Abdominal Exam: Soft, Diminished Bowel Sounds - Rectal Exam Rectal Exam: Deferred
[2017-11-20] MEDS: Promethazine DM 12.5 mg-30 mg/10 ml Syrup PO PRN (19:17)
[2017-11-21] MEDS: guaiFENesin 200 mg/10 ml Syrup UD PO SCH ×4 (00:54→19:32)
[2017-11-21] MEDS: Albuterol-Ipratrop 3 mg / 0.5 (3 ml) UD INH SCH ×3 (01:13→19:21)
[2017-11-21] MEDS: MethylPREDNISolone 40 mg Vial IVP SCH ×3 (05:56→22:16)
[2017-11-21] MEDS: Fluticasone-Salmeterol 250-50mcg Diskus INH SCH ×3 (07:13→19:24)
[2017-11-21] MEDS: Omega-3-Acid Ethyl Esters 1 GM Cap PO SCH ×2 (10:27→17:29)
[2017-11-21] MEDS: cefTRIAXone IV 1 gm in Dextros 50 ML IVPB SCH (10:31)
[2017-11-21] MEDS: Azithromycin 500 MG in Sodium Chloride 0.9% 250 ML IVPB SCH (11:30)
--- NOTE | 2017-11-21 12:43 | CP.PCM.PN ---
Subjective - Date & Time of Evaluation Date of Evaluation: 11/21/17 Time of Evaluation: 08:40 - Subjective Subjective: clinically same Objective - Vital Signs/Intake and Output Vital Signs (last 24 hours): Temp Pulse Resp BP Pulse Ox 98.6 F 65 18 155/88 H 98 11/21/17 07:40 11/21/17 07:40 11/21/17 07:40 11/21/17 10:28 11/21/17 07:40 Intake and Output: 11/21/17 11/21/17 06:59 18:59 Intake Total 700 Balance 700 - Medications Medications: Current Medications Albuterol/Ipratropium (Duoneb 3 Mg/0.5 Mg (3 Ml) Ud) 3 ml INH RQ6 [facility] Last Admin: 11/21/17 07:14 Dose: 3 ml Alprazolam (Xanax) 0.25 mg PO TID PRN PRN Reason: Anxiety Stop: 11/26/17 20:52 Last Admin: 11/19/17 21:09 Dose: 0.25 mg Amlodipine Besylate (Norvasc) 10 mg PO DAILY [facility] Last Admin: 11/21/17 10:29 Dose: 10 mg Aspirin (Aspirin Chewable) 81 mg PO DAILY [facility] Last Admin: 11/21/17 10:27 Dose: 81 mg Carvedilol (Coreg) 25 mg PO BID [facility] Last Admin: 11/21/17 10:28 Dose: 25 mg Diphenhydramine HCl (Benadryl) 50 mg PO HS PRN PRN Reason: Sleep Last Admin: 11/20/17 22:39 Dose: 50 mg Furosemide (Lasix) 40 mg IVP DAILY [facility] Last Admin: 11/21/17 10:22 Dose: 40 mg Gabapentin (Neurontin) 300 mg PO BID [facility] Last Admin: 11/21/17 10:27 Dose: 300 mg Guaifenesin (Robitussin) 200 mg PO Q6H [facility] Last Admin: 11/21/17 05:56 Dose: 200 mg Heparin Sodium (Porcine) (Heparin) 5,000 units SC Q12 [facility] Last Admin: 11/21/17 10:25 Dose: 5,000 units Hydrochlorothiazide (Hydrodiuril) 25 mg PO DAILY [facility] Last Admin: 11/21/17 10:29 Dose: 25 mg Ceftriaxone Sodium (Rocephin Iv 1 Gm Duplex) 50 mls @ 100 mls/hr IVPB DAILY [facility] PRN Reason: Protocol Last Admin: 11/21/17 10:31 Dose: 100 mls/hr Azithromycin 500 mg/ Sodium (Chloride) 250 mls @ 250 mls/hr IVPB DAILY@1030 [facility] PRN Reason: Protocol Last Admin: 11/21/17 11:30 Dose: 250 mls/hr Losartan Potassium (Cozaar) 100 mg PO DAILY [facility] Last Admin: 11/21/17 10:29 Dose: 100 mg Metformin HCl (Glucophage) 1,000 mg PO BID [facility] Last Admin: 11/21/17 10:29 Dose: 1,000 mg Methylprednisolone (Solu-Medrol) 40 mg IVP Q8 [facility] Last Admin: 11/21/17 05:56 Dose: 40 mg Montelukast Sodium (Singulair) 10 mg PO HS [facility] Last Admin: 11/20/17 21:29 Dose: 10 mg Lrfcy-2-Zxlc Ethyl Esters (Lovaza) 1 gm PO BID [facility] Last Admin: 11/21/17 10:27 Dose: 1 gm Promethazine HCl/Dextromethorphan (Phenergan Dm Syrup) 10 ml PO BID PRN PRN Reason: Cough Last Admin: 11/20/17 19:17 Dose: 10 ml Rosuvastatin Calcium (Crestor) 10 mg PO HS [facility] Last Admin: 11/20/17 21:30 Dose: 10 mg Fluticasone/Salmeterol (Advair Diskus 250/50) 1 puff INH RQ12 [facility] Last Admin: 11/21/17 07:13 Dose: 1 puff Sitagliptin Phosphate (Januvia) 100 mg PO DAILY [facility] Last Admin: 11/21/17 10:27 Dose: 100 mg - Labs Labs: 11/19/17 11:16 11/19/17 11:16 PT 12.7 SECONDS (9.7-12.2) H 11/19/17 11:16 INR 1.2 11/19/17 11:16 APTT 38 SECONDS (21-34) H 11/19/17 11:16 - Constitutional Appears: Well - Head Exam Head Exam: ATRAUMATIC, NORMAL INSPECTION, NORMOCEPHALIC - Eye Exam Eye Exam: EOMI, Normal appearance, PERRL Pupil Exam: NORMAL ACCOMODATION, PERRL - ENT Exam ENT Exam: Mucous Membranes Moist, Normal Exam - Neck Exam Neck Exam: Full ROM, Normal Inspection. absent: Lymphadenopathy - Respiratory Exam Respiratory Exam: Decreased Breath Sounds - Cardiovascular Exam Cardiovascular Exam: REGULAR RHYTHM, +S1, +S2 - GI/Abdominal Exam GI & Abdominal Exam: Soft, Diminished Bowel Sounds - Rectal Exam Rectal Exam: Deferred
[2017-11-21] MEDS: Promethazine DM 12.5 mg-30 mg/10 ml Syrup PO PRN (12:54)
--- NOTE | 2017-11-21 13:47 | CP.PCM.PN ---
Subjective - Date & Time of Evaluation Date of Evaluation: 11/21/17 Time of Evaluation: 13:46 - Subjective Subjective: Patient seen and examined No events overnight Objective - Vital Signs/Intake and Output Vital Signs (last 24 hours): Temp Pulse Resp BP Pulse Ox 98.6 F 65 18 155/88 H 98 11/21/17 07:40 11/21/17 07:40 11/21/17 07:40 11/21/17 10:28 11/21/17 07:40 Intake and Output: 11/21/17 11/21/17 06:59 18:59 Intake Total 700 Balance 700 - Medications Medications: Current Medications Albuterol/Ipratropium (Duoneb 3 Mg/0.5 Mg (3 Ml) Ud) 3 ml INH RQ6 [facility] Last Admin: 11/21/17 07:14 Dose: 3 ml Alprazolam (Xanax) 0.25 mg PO TID PRN PRN Reason: Anxiety Stop: 11/26/17 20:52 Last Admin: 11/19/17 21:09 Dose: 0.25 mg Amlodipine Besylate (Norvasc) 10 mg PO DAILY [facility] Last Admin: 11/21/17 10:29 Dose: 10 mg Aspirin (Aspirin Chewable) 81 mg PO DAILY [facility] Last Admin: 11/21/17 10:27 Dose: 81 mg Carvedilol (Coreg) 25 mg PO BID [facility] Last Admin: 11/21/17 10:28 Dose: 25 mg Diphenhydramine HCl (Benadryl) 50 mg PO HS PRN PRN Reason: Sleep Last Admin: 11/20/17 22:39 Dose: 50 mg Furosemide (Lasix) 40 mg IVP DAILY [facility] Last Admin: 11/21/17 10:22 Dose: 40 mg Gabapentin (Neurontin) 300 mg PO BID [facility] Last Admin: 11/21/17 10:27 Dose: 300 mg Guaifenesin (Robitussin) 200 mg PO Q6H [facility] Last Admin: 11/21/17 13:42 Dose: 200 mg Heparin Sodium (Porcine) (Heparin) 5,000 units SC Q12 [facility] Last Admin: 11/21/17 10:25 Dose: 5,000 units Hydrochlorothiazide (Hydrodiuril) 25 mg PO DAILY [facility] Last Admin: 11/21/17 10:29 Dose: 25 mg Ceftriaxone Sodium (Rocephin Iv 1 Gm Duplex) 50 mls @ 100 mls/hr IVPB DAILY [facility] PRN Reason: Protocol Last Admin: 11/21/17 10:31 Dose: 100 mls/hr Azithromycin 500 mg/ Sodium (Chloride) 250 mls @ 250 mls/hr IVPB DAILY@1030 [facility] PRN Reason: Protocol Last Admin: 11/21/17 11:30 Dose: 250 mls/hr Losartan Potassium (Cozaar) 100 mg PO DAILY [facility] Last Admin: 11/21/17 10:29 Dose: 100 mg Metformin HCl (Glucophage) 1,000 mg PO BID [facility] Last Admin: 11/21/17 10:29 Dose: 1,000 mg Methylprednisolone (Solu-Medrol) 40 mg IVP Q8 [facility] Last Admin: 11/21/17 13:42 Dose: 40 mg Montelukast Sodium (Singulair) 10 mg PO HS [facility] Last Admin: 11/20/17 21:29 Dose: 10 mg Medmk-1-Jwkc Ethyl Esters (Lovaza) 1 gm PO BID [facility] Last Admin: 11/21/17 10:27 Dose: 1 gm Promethazine HCl/Dextromethorphan (Phenergan Dm Syrup) 10 ml PO BID PRN PRN Reason: Cough Last Admin: 11/21/17 12:54 Dose: 10 ml Rosuvastatin Calcium (Crestor) 10 mg PO HS [facility] Last Admin: 11/20/17 21:30 Dose: 10 mg Fluticasone/Salmeterol (Advair Diskus 250/50) 1 puff INH RQ12 [facility] Last Admin: 11/21/17 07:13 Dose: 1 puff Sitagliptin Phosphate (Januvia) 100 mg PO DAILY [facility] Last Admin: 11/21/17 10:27 Dose: 100 mg - Labs Labs: 11/19/17 11:16 11/19/17 11:16 PT 12.7 SECONDS (9.7-12.2) H 11/19/17 11:16 INR 1.2 11/19/17 11:16 APTT 38 SECONDS (21-34) H 11/19/17 11:16 - Head Exam Head Exam: NORMAL INSPECTION - Eye Exam Eye Exam: Normal appearance - ENT Exam ENT Exam: Mucous Membranes Moist - Respiratory Exam Respiratory Exam: Prolonged Expiratory Phase, Wheezes - Cardiovascular Exam Cardiovascular Exam: REGULAR RHYTHM, +S1, +S2 - GI/Abdominal Exam GI & Abdominal Exam: Soft, Normal Bowel Sounds - Extremities Exam Extremities Exam: Normal Inspection - Neurological Exam Neurological Exam: Alert, Oriented x3 - Psychiatric Exam Psychiatric exam: Normal Affect, Normal Mood Assessment and Plan - Assessment and Plan (Free Text) Assessment: COPD Exacerbation HTN DM Continue Solumedrol Bronchodilators Advair 250/50 mcg 1 P Q 12 hrs Continue Ceftrioxone/Zithromax Singulair 10 mg QHS Promethazine Accucheck DVT/GI prophalaxis
[2017-11-21 14:42] LABS: SQUAMOUS EPITHIAL 6 /hpf (0-5); URINE BILIRUBIN NEGATIVE (NEGATIVE); URINE BLOOD NEGATIVE (NEGATIVE); URINE CLARITY Clear (Clear); URINE COLOR Yellow (YELLOW); URINE GLUCOSE (UA) NORMAL (Normal); URINE LEUKOCYTE ESTERASE NEG Leu/uL (Negative); URINE PROTEIN 1+ mg/dL (NEGATIVE); URINE UROBILINOGEN NORMAL mg/dL (0.2-1.0)
[2017-11-22] MEDS: guaiFENesin 200 mg/10 ml Syrup UD PO SCH ×6 (00:04→23:59)
[2017-11-22] MEDS: Albuterol-Ipratrop 3 mg / 0.5 (3 ml) UD INH SCH ×5 (01:35→20:52)
[2017-11-22] MEDS: MethylPREDNISolone 40 mg Vial IVP SCH ×3 (06:44→21:07)
[2017-11-22] MEDS: Fluticasone-Salmeterol 250-50mcg Diskus INH SCH ×2 (07:30→20:52)
[2017-11-22] MEDS: Omega-3-Acid Ethyl Esters 1 GM Cap PO SCH ×2 (11:01→18:36)
[2017-11-22] MEDS: cefTRIAXone IV 1 gm in Dextros 50 ML IVPB SCH (11:03)
[2017-11-22 11:58] LABS: BASO % 0.3 % (0.0-2.0); EOS % 0.1 % (0.0-4.0); LYMPH # 1.9 K/uL (1.0-4.3); LYMPH % 13.1 % (20.0-40.0); MEAN CELL VOLUME 87.7 fL (81.0-99.0); MEAN CORPUSCULAR HEMOGLOBIN 29.3 pg (27.0-31.0); MEAN CORPUSCULAR HGB CONC 33.4 g/dL (33.0-37.0); MEAN PLATELET VOLUME 8.3 fL (7.2-11.7); MONO # 0.4 K/uL (0.0-0.8); MONO % 2.8 % (0.0-10.0); NEUT # 11.9 K/uL (1.8-7.0); NEUT % 83.7 % (50.0-75.0); NRBC % 0.1 % (0.0-2.0); RBC 5.12 Mil/uL (3.80-5.20); RED CELL DISTRIBUTION WIDTH 14.4 % (11.5-14.5)
[2017-11-22 12:00] LABS: WHITE BLOOD COUNT 14.3 K/uL (4.8-10.8)
[2017-11-22] MEDS: Azithromycin 500 MG in Sodium Chloride 0.9% 250 ML IVPB SCH (12:10)
[2017-11-22 12:18] LABS: ALB/GLOB RATIO 1.1 (1.0-2.1); ALBUMIN 4.5 g/dL (3.5-5.0); ALT/SGPT 25 U/L (9-52); AST/SGOT 30 U/L (14-36); BLOOD UREA NITROGEN 24 mg/dL (7-17); CALCIUM 9.9 mg/dl (8.6-10.4); GFR AFRICAN-AMERICAN > 60; GFR NON-AFRICAN AMERICAN > 60
--- NOTE | 2017-11-22 15:34 | CP.PCM.PN ---
Subjective - Date & Time of Evaluation Date of Evaluation: 11/22/17 Time of Evaluation: 08:20 - Subjective Subjective: clinically same Objective - Vital Signs/Intake and Output Vital Signs (last 24 hours): Temp Pulse Resp BP Pulse Ox 98.2 F 63 22 153/74 H 96 11/22/17 07:20 11/22/17 07:20 11/22/17 07:20 11/22/17 11:02 11/22/17 07:20 - Medications Medications: Current Medications Albuterol/Ipratropium (Duoneb 3 Mg/0.5 Mg (3 Ml) Ud) 3 ml INH RQ6 [facility] Last Admin: 11/22/17 13:03 Dose: 3 ml Alprazolam (Xanax) 0.25 mg PO TID PRN PRN Reason: Anxiety Stop: 11/26/17 20:52 Last Admin: 11/21/17 22:01 Dose: 0.25 mg Amlodipine Besylate (Norvasc) 10 mg PO DAILY [facility] Last Admin: 11/22/17 11:05 Dose: Not Given Aspirin (Aspirin Chewable) 81 mg PO DAILY [facility] Last Admin: 11/22/17 11:00 Dose: 81 mg Carvedilol (Coreg) 25 mg PO BID [facility] Last Admin: 11/22/17 11:04 Dose: Not Given Diphenhydramine HCl (Benadryl) 50 mg PO HS PRN PRN Reason: Sleep Last Admin: 11/20/17 22:39 Dose: 50 mg Furosemide (Lasix) 40 mg IVP DAILY [facility] Last Admin: 11/22/17 11:02 Dose: 40 mg Gabapentin (Neurontin) 300 mg PO BID [facility] Last Admin: 11/22/17 11:01 Dose: 300 mg Guaifenesin (Robitussin) 200 mg PO Q6H [facility] Last Admin: 11/22/17 12:10 Dose: 200 mg Heparin Sodium (Porcine) (Heparin) 5,000 units SC Q12 [facility] Last Admin: 11/22/17 11:04 Dose: 5,000 units Hydrochlorothiazide (Hydrodiuril) 25 mg PO DAILY [facility] Last Admin: 11/22/17 11:03 Dose: 25 mg Ceftriaxone Sodium (Rocephin Iv 1 Gm Duplex) 50 mls @ 100 mls/hr IVPB DAILY [facility] PRN Reason: Protocol Last Admin: 11/22/17 11:03 Dose: 100 mls/hr Azithromycin 500 mg/ Sodium (Chloride) 250 mls @ 250 mls/hr IVPB DAILY@1030 [facility] PRN Reason: Protocol Last Admin: 11/22/17 12:10 Dose: 250 mls/hr Losartan Potassium (Cozaar) 100 mg PO DAILY [facility] Last Admin: 11/22/17 11:05 Dose: Not Given Metformin HCl (Glucophage) 1,000 mg PO BID [facility] Last Admin: 11/22/17 11:01 Dose: 1,000 mg Methylprednisolone (Solu-Medrol) 40 mg IVP Q8 [facility] Last Admin: 11/22/17 13:06 Dose: 40 mg Montelukast Sodium (Singulair) 10 mg PO HS [facility] Last Admin: 11/21/17 22:01 Dose: 10 mg Bfoki-5-Tzfh Ethyl Esters (Lovaza) 1 gm PO BID [facility] Last Admin: 11/22/17 11:01 Dose: 1 gm Promethazine HCl/Dextromethorphan (Phenergan Dm Syrup) 10 ml PO BID PRN PRN Reason: Cough Last Admin: 11/21/17 12:54 Dose: 10 ml Rosuvastatin Calcium (Crestor) 10 mg PO HS [facility] Last Admin: 11/21/17 22:01 Dose: 10 mg Fluticasone/Salmeterol (Advair Diskus 250/50) 1 puff INH RQ12 [facility] Last Admin: 11/22/17 07:30 Dose: 1 puff Sitagliptin Phosphate (Januvia) 100 mg PO DAILY [facility] Last Admin: 11/22/17 11:01 Dose: 100 mg - Labs Labs: 11/22/17 11:43 11/22/17 11:43 PT 12.7 SECONDS (9.7-12.2) H 11/19/17 11:16 INR 1.2 11/19/17 11:16 APTT 38 SECONDS (21-34) H 11/19/17 11:16 - Constitutional Appears: Well - Head Exam Head Exam: ATRAUMATIC, NORMAL INSPECTION, NORMOCEPHALIC - Eye Exam Eye Exam: EOMI, Normal appearance, PERRL Pupil Exam: NORMAL ACCOMODATION, PERRL - ENT Exam ENT Exam: Mucous Membranes Moist, Normal Exam - Neck Exam Neck Exam: Full ROM, Normal Inspection. absent: Lymphadenopathy - Respiratory Exam Respiratory Exam: Decreased Breath Sounds - Cardiovascular Exam Cardiovascular Exam: REGULAR RHYTHM, +S1, +S2 - GI/Abdominal Exam GI & Abdominal Exam: Soft, Diminished Bowel Sounds - Rectal Exam Rectal Exam: Deferred
[2017-11-22] MEDS ORDERED: Potassium Chloride 20 mEq ER Tab PO ONE (16:30)
[2017-11-22 16:47] VITALS: RESP 20
[2017-11-22] MEDS: Promethazine DM 12.5 mg-30 mg/10 ml Syrup PO PRN (18:41)
--- NOTE | 2017-11-22 18:43 | CP.PCM.PN ---
Subjective - Date & Time of Evaluation Date of Evaluation: 11/22/17 Time of Evaluation: 18:42 - Subjective Subjective: Patient seen an examined Symptomatically Better Objective - Vital Signs/Intake and Output Vital Signs (last 24 hours): Temp Pulse Resp BP Pulse Ox 98.6 F 61 20 162/83 H 95 11/22/17 16:46 11/22/17 16:46 11/22/17 16:46 11/22/17 18:36 11/22/17 16:46 Intake and Output: 11/22/17 11/22/17 06:59 18:59 Intake Total 770 Balance 770 - Medications Medications: Current Medications Albuterol/Ipratropium (Duoneb 3 Mg/0.5 Mg (3 Ml) Ud) 3 ml INH RQ6 [facility] Last Admin: 11/22/17 13:03 Dose: 3 ml Alprazolam (Xanax) 0.25 mg PO TID PRN PRN Reason: Anxiety Stop: 11/26/17 20:52 Last Admin: 11/21/17 22:01 Dose: 0.25 mg Amlodipine Besylate (Norvasc) 10 mg PO DAILY [facility] Last Admin: 11/22/17 11:05 Dose: Not Given Aspirin (Aspirin Chewable) 81 mg PO DAILY [facility] Last Admin: 11/22/17 11:00 Dose: 81 mg Carvedilol (Coreg) 25 mg PO BID [facility] Last Admin: 11/22/17 18:36 Dose: 25 mg Diphenhydramine HCl (Benadryl) 50 mg PO HS PRN PRN Reason: Sleep Last Admin: 11/20/17 22:39 Dose: 50 mg Furosemide (Lasix) 40 mg IVP DAILY [facility] Last Admin: 11/22/17 11:02 Dose: 40 mg Gabapentin (Neurontin) 300 mg PO BID [facility] Last Admin: 11/22/17 18:35 Dose: 300 mg Guaifenesin (Robitussin) 200 mg PO Q6H [facility] Last Admin: 11/22/17 18:41 Dose: Not Given Heparin Sodium (Porcine) (Heparin) 5,000 units SC Q12 [facility] Last Admin: 11/22/17 11:04 Dose: 5,000 units Hydrochlorothiazide (Hydrodiuril) 25 mg PO DAILY [facility] Last Admin: 11/22/17 11:03 Dose: 25 mg Ceftriaxone Sodium (Rocephin Iv 1 Gm Duplex) 50 mls @ 100 mls/hr IVPB DAILY [facility] PRN Reason: Protocol Last Admin: 11/22/17 11:03 Dose: 100 mls/hr Azithromycin 500 mg/ Sodium (Chloride) 250 mls @ 250 mls/hr IVPB DAILY@1030 [facility] PRN Reason: Protocol Last Admin: 11/22/17 12:10 Dose: 250 mls/hr Losartan Potassium (Cozaar) 100 mg PO DAILY [facility] Last Admin: 11/22/17 11:05 Dose: Not Given Metformin HCl (Glucophage) 1,000 mg PO BID [facility] Last Admin: 11/22/17 18:36 Dose: 1,000 mg Methylprednisolone (Solu-Medrol) 40 mg IVP Q8 [facility] Last Admin: 11/22/17 13:06 Dose: 40 mg Montelukast Sodium (Singulair) 10 mg PO HS [facility] Last Admin: 11/21/17 22:01 Dose: 10 mg Qdrce-4-Oter Ethyl Esters (Lovaza) 1 gm PO BID [facility] Last Admin: 11/22/17 18:36 Dose: 1 gm Promethazine HCl/Dextromethorphan (Phenergan Dm Syrup) 10 ml PO BID PRN PRN Reason: Cough Last Admin: 11/22/17 18:41 Dose: 10 ml Rosuvastatin Calcium (Crestor) 10 mg PO HS [facility] Last Admin: 11/21/17 22:01 Dose: 10 mg Fluticasone/Salmeterol (Advair Diskus 250/50) 1 puff INH RQ12 [facility] Last Admin: 11/22/17 07:30 Dose: 1 puff Sitagliptin Phosphate (Januvia) 100 mg PO DAILY [facility] Last Admin: 11/22/17 11:01 Dose: 100 mg - Labs Labs: 11/22/17 11:43 11/22/17 11:43 PT 12.7 SECONDS (9.7-12.2) H 11/19/17 11:16 INR 1.2 11/19/17 11:16 APTT 38 SECONDS (21-34) H 11/19/17 11:16 - Head Exam Head Exam: NORMAL INSPECTION - Eye Exam Eye Exam: Normal appearance - ENT Exam ENT Exam: Mucous Membranes Moist - Respiratory Exam Respiratory Exam: Prolonged Expiratory Phase - Cardiovascular Exam Cardiovascular Exam: REGULAR RHYTHM, +S1, +S2 - GI/Abdominal Exam GI & Abdominal Exam: Soft, Normal Bowel Sounds - Extremities Exam Extremities Exam: Normal Inspection Assessment and Plan - Assessment and Plan (Free Text) Assessment: COPD Exacerbation HTN DM Continue Solumedrol Bronchodilators Advair 250/50 mcg 1 P Q 12 hrs Continue Ceftrioxone/Zithromax Singulair 10 mg QHS Promethazine Accucheck DVT/GI prophalaxis
[2017-11-22] MEDS ORDERED: Potassium Chloride 20 mEq ER Tab PO STA (23:50)
[2017-11-23] MEDS: Albuterol-Ipratrop 3 mg / 0.5 (3 ml) UD INH SCH ×3 (01:03→15:10)
[2017-11-23 05:47] LABS: BASO % 0.3 % (0.0-2.0); HEMOGLOBIN 14.5 g/dL (11.0-16.0); LYMPH # 1.9 K/uL (1.0-4.3); MEAN CORPUSCULAR HGB CONC 33.4 g/dL (33.0-37.0); MEAN PLATELET VOLUME 7.8 fL (7.2-11.7); MONO # 0.4 K/uL (0.0-0.8); MONO % 3.3 % (0.0-10.0); NEUT # 10.2 K/uL (1.8-7.0); NEUT % 81.4 % (50.0-75.0); NRBC % 0.1 % (0.0-2.0); RBC 4.98 Mil/uL (3.80-5.20); RED CELL DISTRIBUTION WIDTH 14.1 % (11.5-14.5); WHITE BLOOD COUNT 12.6 K/uL (4.8-10.8)
[2017-11-23] MEDS: MethylPREDNISolone 40 mg Vial IVP SCH (06:14)
[2017-11-23 06:15] LABS: CK-MB 0.58 ng/mL (0.0-3.38)
[2017-11-23] MEDS: guaiFENesin 200 mg/10 ml Syrup UD PO SCH ×2 (06:22→12:50)
[2017-11-23] MEDS: Fluticasone-Salmeterol 250-50mcg Diskus INH SCH (07:45)
[2017-11-23 08:23] LABS: ALB/GLOB RATIO 1.1 (1.0-2.1); ALBUMIN 4.1 g/dL (3.5-5.0); ALT/SGPT 26 U/L (9-52); AST/SGOT 83 U/L (14-36); BLOOD UREA NITROGEN 35 mg/dL (7-17); CALCIUM 10.2 mg/dl (8.6-10.4); GFR AFRICAN-AMERICAN > 60; GFR NON-AFRICAN AMERICAN > 60
[2017-11-23 08:29] VITALS: TEMP 98.4; O2SAT 94
[2017-11-23] MEDS: Omega-3-Acid Ethyl Esters 1 GM Cap PO SCH (10:04)
[2017-11-23] MEDS: cefTRIAXone IV 1 gm in Dextros 50 ML IVPB SCH (10:07)
[2017-11-23 10:09] VITALS: BP 170/85
[2017-11-23] MEDS: Azithromycin 500 MG in Sodium Chloride 0.9% 250 ML IVPB SCH (11:03)
--- NOTE | 2017-11-23 13:39 | CP.PCM.PN ---
Subjective - Date & Time of Evaluation Date of Evaluation: 11/23/17 Time of Evaluation: 13:39 - Subjective Subjective: PATIENT WAS ADMITTED COPD AAOX3 ON ROOM AIR SAT AT 99 NO SIGNOF DISTRESS NOTED Objective - Vital Signs/Intake and Output Vital Signs (last 24 hours): Temp Pulse Resp BP Pulse Ox 98.4 F 72 20 170/85 H 94 L 11/23/17 08:00 11/23/17 08:00 11/23/17 08:00 11/23/17 10:05 11/23/17 08:00 Intake and Output: 11/23/17 11/23/17 06:59 18:59 Intake Total 400 Balance 400 - Medications Medications: Current Medications Albuterol/Ipratropium (Duoneb 3 Mg/0.5 Mg (3 Ml) Ud) 3 ml INH RQ6 [facility] [place] Last Admin: 11/23/17 07:46 Dose: 3 ml Alprazolam (Xanax) 0.25 mg PO TID PRN PRN Reason: Anxiety Stop: 11/26/17 20:52 Last Admin: 11/23/17 10:21 Dose: 0.25 mg Amlodipine Besylate (Norvasc) 10 mg PO DAILY [facility] [place] Last Admin: 11/23/17 10:09 Dose: Not Given Aspirin (Aspirin Chewable) 81 mg PO DAILY [facility] [place] Last Admin: 11/23/17 10:04 Dose: 81 mg Carvedilol (Coreg) 25 mg PO BID [facility] [place] Last Admin: 11/23/17 10:09 Dose: Not Given Diphenhydramine HCl (Benadryl) 50 mg PO HS PRN PRN Reason: Sleep Last Admin: 11/20/17 22:39 Dose: 50 mg Furosemide (Lasix) 40 mg IVP DAILY [facility] [place] Last Admin: 11/23/17 10:05 Dose: 40 mg Gabapentin (Neurontin) 300 mg PO BID [facility] [place] Last Admin: 11/23/17 10:05 Dose: 300 mg Guaifenesin (Robitussin) 200 mg PO Q6H [facility] [place] Last Admin: 11/23/17 12:50 Dose: 200 mg Hydrochlorothiazide (Hydrodiuril) 25 mg PO DAILY [facility] [place] Last Admin: 11/23/17 10:04 Dose: 25 mg Ceftriaxone Sodium (Rocephin Iv 1 Gm Duplex) 50 mls @ 100 mls/hr IVPB DAILY [facility] [place] PRN Reason: Protocol Last Admin: 11/23/17 10:07 Dose: 100 mls/hr Azithromycin 500 mg/ Sodium (Chloride) 250 mls @ 250 mls/hr IVPB DAILY@1030 [facility] PRN Reason: Protocol Last Admin: 11/23/17 11:03 Dose: 250 mls/hr Losartan Potassium (Cozaar) 100 mg PO DAILY [facility] Last Admin: 11/23/17 10:09 Dose: 100 mg Metformin HCl (Glucophage) 1,000 mg PO BID [facility] Last Admin: 11/23/17 10:05 Dose: 1,000 mg Methylprednisolone (Solu-Medrol) 40 mg IVP Q12H [facility] Montelukast Sodium (Singulair) 10 mg PO HS [facility] [place] Last Admin: 11/22/17 21:07 Dose: 10 mg Nicotine (Nicoderm Cq) 1 patch TD DAILY [facility] [place] Last Admin: 11/23/17 10:06 Dose: 1 patch [id number] Ethyl Esters (Lovaza) 1 gm PO BID [facility] [place] Last Admin: 11/23/17 10:04 Dose: 1 gm Promethazine HCl/Dextromethorphan (Phenergan Dm Syrup) 10 ml PO BID PRN PRN Reason: Cough Last Admin: 11/22/17 18:41 Dose: 10 ml Rosuvastatin Calcium (Crestor) 10 mg PO HS [facility] [place] Last Admin: 11/22/17 21:07 Dose: 10 mg Fluticasone/Salmeterol (Advair Diskus 250/50) 1 puff INH RQ12 [facility] [place] Last Admin: 11/23/17 07:45 Dose: 1 puff Sitagliptin Phosphate (Januvia) 100 mg PO DAILY [facility] [place] Last Admin: 11/23/17 10:04 Dose: 100 mg - Labs Labs: 11/23/17 05:44 11/23/17 04:00 PT 12.7 SECONDS (9.7-12.2) H 11/19/17 11:16 INR 1.2 11/19/17 11:16 APTT 38 SECONDS (21-34) H 11/19/17 11:16 Assessment and Plan - Assessment and Plan (Free Text) Assessment: PATIENT SEEN AND EXAMINED AT THE BEDSIDE LUNG SOUND IMPROVE NO WHEEZING NOTED DISCUSS WITH Wilda IRIZARRY WHO [place] FOLLOW UP WITH DR Wilda IRIZARRY ON SUNDAY AT HIS OFFICE ---CALL TO CONFIRM FOLLOW UP MATILDA IN 1 WEEK AT HIS OFFICE ---CALL FOR APPOINTMENT CONTINUE ALL YOUR HOME MEDICATION NEW PRESCRIPTION GIVEN SINGULAIR 10 MG PO AT HS ADVAIR 250/50 Q12H 1 PUFF PREDNISONE TAPER 40 MG FOR 3 DAYS, THEN 30 MG FOR 3 DAYS, THEN 20MG FOR 3 DAYS, THEN 10 MG FOR 3DAYS, THEN 5 MG FOR 2 DAYS NICOTINE PATCH 14MG /24H DAILY ACTIVITY TOLERATED CALL DR Wilda IRIZARRY OR GO TO THE EMERGENCY ROOM IF SYMPTOMS RETURN OR WORSENING DISCUSS WITH PATIENT WHO AGREE AND VERBALIZED UNDERSTANDING
--- NOTE | 2017-11-23 15:11 | CP.PCM.PN ---
Subjective - Date & Time of Evaluation Date of Evaluation: 11/23/17 Time of Evaluation: 15:11 Objective - Vital Signs/Intake and Output Vital Signs (last 24 hours): Temp Pulse Resp BP Pulse Ox 98.4 F 72 20 170/85 H 94 L 11/23/17 08:00 11/23/17 08:00 11/23/17 08:00 11/23/17 10:05 11/23/17 08:00 Intake and Output: 11/23/17 11/23/17 06:59 18:59 Intake Total 400 Balance 400 - Medications Medications: Current Medications Albuterol/Ipratropium (Duoneb 3 Mg/0.5 Mg (3 Ml) Ud) 3 ml INH RQ6 [facility] Last Admin: 11/23/17 15:10 Dose: 3 ml Alprazolam (Xanax) 0.25 mg PO TID PRN PRN Reason: Anxiety Stop: 11/26/17 20:52 Last Admin: 11/23/17 10:21 Dose: 0.25 mg Amlodipine Besylate (Norvasc) 10 mg PO DAILY [facility] Last Admin: 11/23/17 10:09 Dose: Not Given Aspirin (Aspirin Chewable) 81 mg PO DAILY [facility] Last Admin: 11/23/17 10:04 Dose: 81 mg Carvedilol (Coreg) 25 mg PO BID [facility] Last Admin: 11/23/17 10:09 Dose: Not Given Diphenhydramine HCl (Benadryl) 50 mg PO HS PRN PRN Reason: Sleep Last Admin: 11/20/17 22:39 Dose: 50 mg Furosemide (Lasix) 40 mg IVP DAILY [facility] Last Admin: 11/23/17 10:05 Dose: 40 mg Gabapentin (Neurontin) 300 mg PO BID [facility] Last Admin: 11/23/17 10:05 Dose: 300 mg Guaifenesin (Robitussin) 200 mg PO Q6H [facility] Last Admin: 11/23/17 12:50 Dose: 200 mg Hydrochlorothiazide (Hydrodiuril) 25 mg PO DAILY [facility] Last Admin: 11/23/17 10:04 Dose: 25 mg Ceftriaxone Sodium (Rocephin Iv 1 Gm Duplex) 50 mls @ 100 mls/hr IVPB DAILY [facility] PRN Reason: Protocol Last Admin: 11/23/17 10:07 Dose: 100 mls/hr Azithromycin 500 mg/ Sodium (Chloride) 250 mls @ 250 mls/hr IVPB DAILY@1030 [facility] PRN Reason: Protocol Last Admin: 11/23/17 11:03 Dose: 250 mls/hr Losartan Potassium (Cozaar) 100 mg PO DAILY [facility] Last Admin: 11/23/17 10:09 Dose: 100 mg Metformin HCl (Glucophage) 1,000 mg PO BID [facility] Last Admin: 11/23/17 10:05 Dose: 1,000 mg Methylprednisolone (Solu-Medrol) 40 mg IVP Q12H [facility] Montelukast Sodium (Singulair) 10 mg PO HS [facility] Last Admin: 11/22/17 21:07 Dose: 10 mg Nicotine (Nicoderm Cq) 1 patch TD DAILY [facility] Last Admin: 11/23/17 10:06 Dose: 1 patch [id number] Ethyl Esters (Lovaza) 1 gm PO BID [facility] Last Admin: 11/23/17 10:04 Dose: 1 gm Promethazine HCl/Dextromethorphan (Phenergan Dm Syrup) 10 ml PO BID PRN PRN Reason: Cough Last Admin: 11/22/17 18:41 Dose: 10 ml Rosuvastatin Calcium (Crestor) 10 mg PO HS [facility] Last Admin: 11/22/17 21:07 Dose: 10 mg Fluticasone/Salmeterol (Advair Diskus 250/50) 1 puff INH RQ12 [facility] Last Admin: 11/23/17 07:45 Dose: 1 puff Sitagliptin Phosphate (Januvia) 100 mg PO DAILY [facility] Last Admin: 11/23/17 10:04 Dose: 100 mg - Labs Labs: 11/23/17 05:44 11/23/17 04:00 PT 12.7 SECONDS (9.7-12.2) H 11/19/17 11:16 INR 1.2 11/19/17 11:16 APTT 38 SECONDS (21-34) H 11/19/17 11:16
[2017-11-23 16:44] VITALS: PULSE 73
[2017-11-23] MEDS ORDERED: MethylPREDNISolone 40 mg Vial IVP SCH (18:00)
== END 2017-11-23 15:40 | disposition home or self-care (01) | DRG 192 ==
LOC: C.ER 10:30 → C.5S 12:35
PROVIDERS: ADMIT Internal Medicine Nephrology; ATTEND Internal Medicine Nephrology
DX: J44.1 Chronic obstructive pulmonary disease with (acute) exacerbation (principal); I10 Essential (primary) hypertension; E11.9 Type 2 diabetes mellitus without complications; E78.00 Pure hypercholesterolemia, unspecified; F17.210 Nicotine dependence, cigarettes, uncomplicated; I25.10 Atherosclerotic heart disease of native coronary artery without angina pectoris; Z79.84 Long term (current) use of oral hypoglycemic drugs

== ENCOUNTER 2018-04-16 12:17 | Emergency (ER) | payer BC ==
[2018-04-16 12:17] VITALS: BMI 43.2
[2018-04-16] MEDS ORDERED: Albuterol-Ipratrop 3 mg / 0.5 (3 ml) UD ONE ×2 (12:45→13:53)
[2018-04-16 12:48] VITALS: RESP 16
--- NOTE | 2018-04-16 13:32 | C.PDOC ---
History Of Present Illness 62 year old female with a history of asthma, cardiac catherization (2018), hypertension, and diabetes presents to the ED for evaluation of exacerbated asthma for the last 3 days. Patient notes prior symptoms have not been as "severe", believes recent cold may have made symptoms worse. Prior medical records are negative. Denies smoking, fever, chest pain, nausea, vomiting, and any other symptoms. PMHx includes Hypertension and Diabetes Time Seen by Provider: 04/16/18 13:09 Chief Complaint (Nursing): Shortness Of Breath History Per: Patient History/Exam Limitations: no limitations Onset/Duration Of Symptoms: Days Current Symptoms Are (Timing): Still Present Past Medical History Reviewed: Historical Data, Nursing Documentation, Vital Signs Vital Signs: Last Vital Signs Temp 99.5 F 04/16/18 12:44 Pulse 68 04/16/18 12:44 Resp 16 04/16/18 12:44 BP 168/69 H 04/16/18 12:44 Pulse Ox 99 04/16/18 12:44 - Medical History PMH: COPD, HTN Denies: Chronic Kidney Disease - [facility] Procedures FLUOROSCOPY OF LEFT HEART USING LOW OSMOLAR CONTRAST (09/30/17) FLUOROSCOPY OF MULT COR ART USING L OSM CONTRAST (09/30/17) MEASURE OF CARDIAC SAMPL & PRESSURE, L HEART, PERC APPROACH (09/30/17) Family History: States: Unknown Family Hx - Social History Hx Tobacco Use: Yes Hx Alcohol Use: No Hx Substance Use: No - Immunization History Hx Tetanus Toxoid Vaccination: No Hx Influenza Vaccination: No Hx Pneumococcal Vaccination: No Review Of Systems Except As Marked, All Systems Reviewed And Found Negative. Constitutional: Negative for: Fever, Chills Respiratory: Positive for: Other (exacerbated asthma.) Gastrointestinal: Negative for: Nausea, Vomiting Physical Exam - Physical Exam Appears: Non-toxic Skin: Normal Color, Warm, Dry Head: Atraumatic, Normacephalic Eye(s): bilateral: Normal Inspection Nose: Normal, No Discharge Oral Mucosa: Moist Neck: Normal ROM, Trachea Midline, Supple Chest: Symmetrical, No Deformity Cardiovascular: Rhythm Regular, No Murmur Respiratory: Normal Breath Sounds, No Accessory Muscle Use, No Rales, No Rhonchi, Wheezing (scattered expiratory wheeze.) Gastrointestinal/Abdominal: Normal Exam, Soft, No Tenderness Extremity: Normal ROM (x4) Neurological/Psych: Oriented x3, Normal Speech, Normal Motor, Normal Sensation, Normal Reflexes Gait: Steady ED Course And Treatment O2 Sat by Pulse Oximetry: 99 (RA) Pulse Ox Interpretation: Normal Progress - Re-Evaluation Re-evaluation Note: 04/16/18 14:29 IMPROVED NARD VSS - Data Reviewed Data Reviewed: Lab, Old records Medical Decision Making Medical Decision Making: Plan: --Albuterol Nebulizer treatment. --Solu-Medrol. Progress/Update: Patient stable for discharge home. Patient prescribed Azithro mycin, Albuterol, and Prednisone. Disposition Counseled Patient/Family Regarding: Diagnosis, Need For Followup, Rx Given - Disposition Referrals: YOUR,PMD [Other] Disposition: HOME/ ROUTINE Disposition Time: 14:29 Condition: IMPROVED Prescriptions: Albuterol HFA [Ventolin HFA 90 mcg/actuation (8 g)] 1 puff IH Q4 #1 inhaler Azithromycin 250 mg PO DAILY #6 tab predniSONE [Prednisone] 60 mg PO DAILY #12 tab Instructions: Asthma, Adult (DC), Acute Bronchitis, Adult (DC) Forms: [employer] (Swedish) - Clinical Impression Clinical Impression: Asthma exacerbation, Bronchitis - Scribe Statement The provider has reviewed the documentation as recorded by the Scribe (Sunita Cruz) Provider Attestation: All medical record entries made by the Scribe were at my direction and personally dictated by me. I have reviewed the chart and agree that the record accurately reflects my personal performance of the history, physical exam, medical decision making, and the department course for this patient. I have also personally directed, reviewed, and agree with the discharge instructions and disposition.
[2018-04-16] MEDS ORDERED: MethylPREDNISolone 40 mg Vial IVP STA (13:44)
[2018-04-16] MEDS: Albuterol-Ipratrop 3 mg / 0.5 (3 ml) UD IH SCH ×2 (13:50→14:10)
[2018-04-16] MEDS ORDERED: MethylPREDNISolone 40 mg Vial ONE (13:53)
[2018-04-16] MEDS ORDERED: Albuterol 0.083% Inhal Sol (2.5 mg/3 mL) UD INH STA ×2 (14:25→14:37)
[2018-04-16] MEDS ORDERED: Albuterol 0.083% Inhal Sol (2.5 mg/3 mL) UD ONE (14:30)
[2018-04-16 14:57] VITALS: BP 168/76; PULSE 58; TEMP 98.2; O2SAT 100
== END 2018-04-16 14:57 | disposition home or self-care (01) ==
LOC: C.ER 12:17
DX: J45.901 Unspecified asthma with (acute) exacerbation (principal)
CPT/HCPCS: 94150; 96374; 99285; J2920